=== PATIENT | male | born 1970 | race Hispanic/Latino ===

== ENCOUNTER 2017-10-10 12:15 | Inpatient (IN) | payer SELFPAY ==
[2017-10-10 12:48] LABS: #Basophils 0.1 thou/uL (0.0-0.2); #Lymphocytes 1.1 thou/uL (1.20-3.40); #Monocytes 0.9 thou/uL (0.11-0.59); #Neutrophils 10.4 thou/uL (1.40-6.50); %Basophils 0.4 % (0.0-1.0); %Eosinophils 0.2 % (0.0-10.0); %Lymphocytes 8.8 % (21.0-51.0); %Monocytes 7.3 % (0.0-10.0); Hematocrit 40.7 % (42.0-52.0); Red Blood Cell (RBC) Count 4.39 mill/uL (4.70-6.10); White Blood Cell (WBC) Count 12.4 thou/uL (4.8-10.8)
[2017-10-10 13:05] LABS: ALT (SGPT) 23 U/L (8-55); AST (SGOT) 17 U/L (5-34); Alkaline Phosphatase 252 U/L (40-150); Anion Gap 13 mmol/L (10-20); BUN (Urea Nitrogen) 19 mg/dL (8.9-20.6); Bilirubin, Total 0.8 mg/dL (0.2-1.2); Calc. Creatinine Clearance 0 mL/min (70-130); Calcium 9.4 mg/dL (7.8-10.44); Carbon Dioxide 25 mmol/L (22-29); Chloride 100 mmol/L (98-107); Estimated GFR-MDRD 68; Globulin 4.1 g/dL (2.4-3.5); Protein, Total 7.4 g/dL (6.0-8.3)
--- NOTE | 2017-10-10 13:05 | RAD ---
LEFT FOOT 3 VIEWS: History Foot injury with swelling. FINDINGS: There is bony destructive change involving the distal phalanx of the great toe. There is air within the soft tissues. There is what is probably a pathologic fracture involving the distal phalanx. The is seen in the soft tissues to the level of the 1st metatarsal. Vascular calcifications are noted. IMPRESSION: Findings are consistent with osteomyelitis of the distal phalanx of the great toe with air seen withi n the soft tissues to the level of the 1st metatarsal. Findings were discussed with Dr. Craig. CODE CR POS: [facility]
[2017-10-10] MEDS ORDERED: Insulin Regular 300 UNITS/3 ML VIAL ONE (13:31)
[2017-10-10 14:30] LABS: Hemoglobin A1c 13.1 % (4.0-6.0)
[2017-10-10] MEDS ORDERED: Benzonatate 100 MG CAP PO PRN (14:42)
[2017-10-10] MEDS ORDERED: Calcium Carbonate 500 MG ChewTAB PO PRN (14:42)
[2017-10-10] MEDS ORDERED: cloNIDine 0.1 MG TAB PO PRN (14:42)
[2017-10-10] MEDS ORDERED: Loratadine 10 MG TAB PO PRN (14:42)
[2017-10-10] MEDS ORDERED: Mag-Al 1200 mg/1200 mg/30 ML UDCUP PO PRN (14:42)
[2017-10-10] MEDS ORDERED: Lorazepam 1 MG TAB PO PRN (14:42)
[2017-10-10] MEDS ORDERED: hydrALAZINE 20 MG/ML VIAL SLOW IVP PRN (14:42)
[2017-10-10] MEDS ORDERED: Bisacodyl 5 MG TAB PO PRN (14:42)
[2017-10-10] MEDS ORDERED: HYDROcodone/Acetaminophen 5/325 mg Tablet PO PRN (14:42)
[2017-10-10] MEDS ORDERED: Ondansetron HCl/PF 4 MG/2 ML Vial IVP PRN (14:42)
[2017-10-10] MEDS ORDERED: Senokot 8.6 MG TAB PO PRN (14:42)
[2017-10-10] MEDS ORDERED: Diabetic Tussin 200 MG/10 ML UDCUP PO PRN (14:42)
[2017-10-10] MEDS ORDERED: Dextrose 50% Abboject 50 ML SYRINGE SLOW IVP PRN (14:42)
[2017-10-10] MEDS ORDERED: traMADol HCl 50 MG TAB PO PRN (14:42)
[2017-10-10] MEDS ORDERED: Nitroglycerin 0.4 MG TAB (25 Tab Bottle) SL PRN (14:42)
[2017-10-10] MEDS ORDERED: Acetaminophen 325 MG TAB PO PRN (14:42)
[2017-10-10] MEDS ORDERED: Dextrose 5% in Water 1,000 ML IV PRN (14:42)
[2017-10-10] MEDS: Sodium Chloride 0.9% 1,000 ML IV SCH (15:41)
--- NOTE | 2017-10-10 15:52 | HP ---
DATE OF ADMISSION: 10/10/2017 PRIMARY CARE PHYSICIAN: None. CHIEF COMPLAINT: Swelling, discharge pain and redness of the left toe. HISTORY OF PRESENTING ILLNESS: Mr. Nava is a very pleasant 47-year-old male without any medical care in the last multiple years, presented to the ER with the above-mentioned complaints. Hi story is mainly obtained by the patient himself and case has been discussed with the admitting ER glenys montes. Electronic medical records have been reviewed. Kiswahili interpretation is used as the patient speaks Kiswahili only. According to Mr. 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 He has been having some pain since then. He tried some home remedies as per the suggest ion of his friends including putting arnica cream on the foot along with some other remedies. His sy mptoms got worse and he started to have more swelling, pain, and discharge, which is bloody as well a s with pus. His redness and his swelling and pain got worse and he came to the ER. He denies having any fevers or chills. He denies any other symptoms. He denies any sick contacts. In the emergency room, he was found to be hemodynamically stable with blood pressure of 133/84 and pu lse of 98. His examination revealed significant swelling and purulent drainage from the left great t oe along with significant erythema extending up his foot. His foot was smelling really bad. He unde rwent an x-ray of the foot, which was consistent with osteomyelitis of the distal phalanx of the grea t toe with air in the soft tissue. He was given antibiotics in the emergency room in the form of IV vancomycin. His basic blood work showed a hemoglobin of 518. When asked, the patient does not have a known history of diabetes, but he has not received any medical care in many years, either. He also received Humulin R 6 units in the emergency room for this. He is now being admitted for further yoko luation and care. PAST MEDICAL HISTORY: None, reviewed with the patient. He has no known diagnosis of diabetes. PAST SURGICAL HISTORY: None, reviewed with the patient. SOCIAL HISTORY: He lives in [place], [place]. No history of drug, tobacco or alcohol abuse. ALLERGIES: No known medication allergies. CURRENT MEDICATIONS: He does not take any medications reviewed with the patient. FAMILY HISTORY: Significant for diabetes in his father, which was diagnosed in his 60s. REVIEW OF SYSTEMS: The following complete review of systems was negative, unless otherwise mentioned in the HPI or below: CONSTITUTIONAL: Weight loss or gain, ability to conduct usual activities. SKIN: Rash, itching. EYES: Double vision, pain. ENT/MOUTH: Nose bleeding, neck stiffness, pain, tenderness. CARDIOVASCULAR: Palpitations, dyspnea on exertion, orthopnea. RESPIRATORY: Shortness of breath, wheezing, cough, hemoptysis, fever or night sweats. GASTROINTESTINAL: Poor appetite, abdominal pain, heartburn, nausea, vomiting, constipation, or diarr hea. GENITOURINARY: Urgency, frequency, dysuria, nocturia. MUSCULOSKELETAL: He complains of pain, swelling, erythema and discharge from his left great toe, whi ch is worsening. NEUROLOGIC/PSYCHIATRIC: Anxiety, depression. ALLERGY/IMMUNOLOGIC: Skin rash, bleeding tendency. It is negative except for those mentioned in the history and physical. PHYSICAL EXAMINATION: VITAL SIGNS: His most recent vital signs include temperature 144/70, pulse of 83, respirations 98 an d saturating 94% on room air. GENERAL: No acute distress, awake, alert, oriented x3. HEENT: Mucous membrane is moist and pink. No oropharyngeal exudate or erythema. Head is normocepha lic, atraumatic. Pupils equal, reactive to light and accommodation. Extraocular movements intact. NECK: Supple without any lymphadenopathy, JVD or bruit. CHEST: Clear to auscultation without any wheezing, rales or rhonchi. Rate and rhythm is regular wit hout any murmur, rubs or gallops. ABDOMEN: Soft, nontender, nondistended with positive bowel sounds. EXTREMITIES: Free of any cyanosis, clubbing or edema. As described above, his great toe is swollen with significant amount of serosanguineous discharge oozing. The erythema extended from his toe all the way up his foot. Pedal pulses are felt bilaterally, +2. He had a 1 cm wound on the medial aspec t of the left great toe with black surrounding eschar. NEUROLOGIC: Nonfocal. SKIN: Free of any rashes or bruises, feels warm and dry to touch. PSYCHIATRIC: Normal affect. IMPRESSION AND PLAN: Left great toe osteomyelitis. This is likely in the setting of undiagnosed aakash betes mellitus with very poor control of his blood sugars. The patient will be continued on IV antib iotics and we will also order blood culture. He had a wound culture done in the Emergency Room, but it is unclear how informative it would be given the open wound. He will be covered for Pseudomonas a s well as MRSA with IV vancomycin and levofloxacin. We will consult Wound Care. We will also consul t General Surgery for possible need for amputation given extensive infection. The patient has been u pdated about all of this using the claim representative phone. Continue symptomatic and supportive care. 2. New diagnosis of diabetes. The patient will be started on insulin sliding scale and we will chec k his hemoglobin A1c. He will need oral hypoglycemic prior to discharge. We will put him on carbon controlled diet and consult dietitian for diabetic education. Dietary discretion is also advised. T he patient has talked about the importance of blood sugar management and this will be reasserted prio r to discharge. 3. Hypertension. The patient's blood pressure is slightly on the higher side while in here. We alison l monitor it and check a lipid panel for health maintenance purposes. Treat as needed. 4. Deep venous thrombosis and gastrointestinal prophylaxis. 5. Check urinalysis to rule out hematuria, ketonuria, glucosuria and proteinuria. His renal functio n at this time is adequate with estimated GFR of 68. 6. Code status: FULL CODE. DISPOSITION: Mr. Nava is being admitted to medical floor for osteomyelitis of left great toe. Fu rther management will depend upon his clinical course. Estimated length of stay at this time is at east 2-3 midnights.
[2017-10-10] MEDS: HumaLOG 300 UNITS/3 ML VIAL SC PRN ×2 (16:32→20:58)
[2017-10-10 16:38] VITALS: BMI 24.5
[2017-10-10] MEDS ORDERED: VANCOMYCIN IVPB PRN (17:12)
[2017-10-10] MEDS ORDERED: FLU VACC QS2017-18 36 mo. & older 0.5 ML SYRINGE IM ONE (18:00)
[2017-10-11] MEDS: Vancomycin HCl 1 GM in Premix Bag 1 BAG IVPB SCH ×2 (02:08→13:03)
[2017-10-11 02:24] LABS: Bilirubin Negative (Negative); Blood, Urine Negative (Negative); Glucose, Urine (Dipstick) >=1000 mg/dL (Negative); Ketone, Urine 40 mg/dL (Negative); Nitrite Negative (Negative); Protein, Urine (Dipstick) 30 mg/dL (Neg-Trace)
[2017-10-11 02:27] LABS: Bacteria/HPF None Seen HPF (None Seen); Hyaline Casts/LPF 0-3 HYALINE CAST LPF (0-3 Hyaline); RBC/HPF 0-3 HPF (0-3); Squamous Epithelial 0-3 HPF (0-3)
[2017-10-11 04:42] LABS: #Basophils 0.1 thou/uL (0.0-0.2); #Lymphocytes 1.6 thou/uL (1.20-3.40); #Monocytes 1.2 thou/uL (0.11-0.59); %Basophils 0.5 % (0.0-1.0); %Eosinophils 0.3 % (0.0-10.0); %Lymphocytes 13.7 % (21.0-51.0); %Monocytes 10.1 % (0.0-10.0); Mean Platelet Volume 7.8 fL (7.4-10.4); Red Blood Cell (RBC) Count 3.78 mill/uL (4.70-6.10); White Blood Cell (WBC) Count 11.9 thou/uL (4.8-10.8)
[2017-10-11 04:58] LABS: Chloride 103 mmol/L (98-107)
[2017-10-11 04:59] LABS: Calcium 8.5 mg/dL (7.8-10.44)
[2017-10-11 05:00] LABS: Carbon Dioxide 26 mmol/L (22-29)
[2017-10-11 05:02] LABS: Calc. Creatinine Clearance 99 mL/min (70-130); Estimated GFR-MDRD Greater than 90
[2017-10-11 05:03] LABS: BUN (Urea Nitrogen) 14 mg/dL (8.9-20.6)
[2017-10-11] MEDS: HumaLOG 300 UNITS/3 ML VIAL SC PRN ×4 (06:01→20:42)
[2017-10-11] MEDS: Enoxaparin Sodium 40 MG/0.4 ML SYRINGE SC SCH (08:04)
[2017-10-11 09:28] LABS: Anion Gap 9 mmol/L (10-20)
[2017-10-11] MEDS: Sodium Chloride 0.9% 1,000 ML IV SCH (11:44)
--- NOTE | 2017-10-11 15:35 | PDOC.PN ---
- Subjective Encounter Start Date: 10/11/17 Encounter Start Time: 15:33 Subjective: pain in the infected toe ,otherwise no new complaints - Objective MAR Reviewed: Yes Vital Signs & Weight: Vital Signs (12 hours) Temp Pulse Resp BP Pulse Ox 10/11/17 08:08 98.9 F 94 18 107/65 92 L 10/11/17 07:34 99.6 F 94 16 10/11/17 04:00 99.6 F 94 16 119/80 92 L I&O: 10/10/17 10/11/17 10/12/17 06:59 06:59 06:59 Intake Total 1520 Balance 1520 Result Diagrams: 10/11/17 03:57 10/11/17 03:57 Additional Labs: Accuchecks 10/11/17 10/10/17 10/10/17 10:44 20:26 15:56 POC Glucose 262 H 247 H 270 H Microbiology 10/10/17 15:32 Venous blood - Right Hand Blood Culture - Preliminary Specimen has been received and culture in progress. No Growth to date. 10/10/17 13:12 Toe - Left Bacterial Culture - Preliminary 10/10/17 12:36 Venous blood - Left Arm Blood Culture - Preliminary Specimen has been received and culture in progress. No Growth to date. Phys Exam - Physical Examination Constitutional: NAD HEENT: PERRLA, moist MMs, sclera anicteric, oral pharynx no lesions Neck: no nodes, no JVD, supple, full ROM Respiratory: no wheezing, no rales, no rhonchi, clear to auscultation bilateral Cardiovascular: RRR, no significant murmur, no rub, gallop Gastrointestinal: soft, non-tender, no distention, positive bowel sounds Musculoskeletal: no edema, pulses present Neurological: non-focal, normal sensation, moves all 4 limbs mild oozing on the dressing on foot Psychiatric: normal affect, A&O x 3 Skin: no rash Dx/Plan (1) Toe osteomyelitis, left Code(s): M86.9 - OSTEOMYELITIS, UNSPECIFIED Status: Acute (2) Newly diagnosed diabetes Code(s): E11.9 - TYPE 2 DIABETES MELLITUS WITHOUT COMPLICATIONS Status: Acute (3) SIRS (systemic inflammatory response syndrome) Code(s): R65.10 - SIRS OF NON-INFECTIOUS ORIGIN W/O ACUTE ORGAN DYSFUNCTION Status: Acute (4) Hyponatremia Code(s): E87.1 - HYPO-OSMOLALITY AND HYPONATREMIA Status: Acute - Plan DVT proph w/SCDs cont IV ABx. follow Cx results. wound care. -: GS to see tomorrow.may need amputation. -: blood sugar improved.cont ISS.add metformin. -: monitor. * . Review of Systems - Review of Systems Constitutional: negative: Fever, Chills, Sweats, Weakness, Malaise, Other Respiratory: negative: Cough, Dry, Shortness of Breath, Hemoptysis, SOB with Excertion, Pleuritic Pain, Sputum, Wheezing Cardiovascular: negative: Chest Pain, Palpitations, Orthopnea, Paroxysmal Noc. Dyspnea, Edema, Light Headedness, Other Gastrointestinal: negative: Nausea, Vomiting, Abdominal Pain, Diarrhea, Constipation, Melena, Hematochezia, Other Genitourinary: negative: Dysuria, Frequency, Incontinence, Hematuria, Retention , Other Musculoskeletal: negative: Neck Pain, Shoulder Pain, Arm Pain, Back Pain, Hand Pain, Leg Pain, Foot Pain, Other Neurological: negative: Weakness, Numbness, Incoordination, Change in Speech, Confusion, Seizures, Other - Medications/Allergies Allergies/Adverse Reactions: Allergies Allergy/AdvReac Type Severity Reaction Status Date / Time No Known Allergies Allergy Verified 10/10/17 16:58 Medications: Current Medications Acetaminophen (Tylenol) 650 mg PO Q4H PRN PRN Reason: Headache/Fever or Pain Last Admin: 10/11/17 06:00 Dose: 650 mg Hydrocodone Bitart/Acetaminophen ([place] 5/325) 1 tab PO Q4H PRN PRN Reason: Moderate Pain (4-6) Last Admin: 10/11/17 11:38 Dose: 1 tab Al Hydroxide/Mg Hydroxide (Maalox) 30 ml PO Q6H PRN PRN Reason: Heartburn or Indigestion Benzonatate (Tessalon) 100 mg PO Q4H PRN PRN Reason: Cough Bisacodyl (Dulcolax) 10 mg PO DAILYPRN PRN PRN Reason: Constipation Calcium Carbonate (Tums) 1,000 mg PO Q4H PRN PRN Reason: Heartburn or Indigestion Clonidine (Catapres) 0.1 mg PO Q4H PRN PRN Reason: Systolic BP > 170 Dextrose/Water (Dextrose 50%) 25 gm SLOW IVP PRN PRN PRN Reason: Hypoglycemia Enoxaparin Sodium (Lovenox) 40 mg SC 0900 [facility] Last Admin: 10/11/17 08:04 Dose: Not Given Famotidine (Pepcid) 20 mg PO 2100 GO Glucagon (Glucagon) 1 mg IM PRN PRN PRN Reason: Hypoglycemia Guaifenesin (Robitussin Sf) 200 mg PO Q4H PRN PRN Reason: Cough Hydralazine HCl (Apresoline) 10 mg SLOW IVP Q4H PRN PRN Reason: Systolic BP > 180 Dextrose/Water (D5w) 1,000 mls @ 0 mls/hr IV .Q0M PRN; As Directed PRN Reason: Hypoglycemia Sodium Chloride (Normal Saline 0.9%) 1,000 mls @ 50 mls/hr IV .Q20H [facility] Last Admin: 10/11/17 11:44 Dose: 1,000 mls Levofloxacin 750 mg/ Device 150 mls @ 100 mls/hr IVPB 1500 [facility] Last Admin: 10/11/17 14:57 Dose: 150 mls Vancomycin HCl 1 gm/ Device 200 mls @ 200 mls/hr IVPB 0200,1400 [facility] Last Admin: 10/11/17 13:03 Dose: 200 mls Insulin Human Lispro (Humalog) 0 units SC .MODERATE SLIDING SC PRN PRN Reason: Moderate Correctional Scale Last Admin: 10/11/17 11:38 Dose: 6 unit Insulin Human Lispro (Humalog) 0 units SC .BEDTIME SLIDING SC PRN PRN Reason: Bedtime Correctional Scale Last Admin: 10/10/17 20:58 Dose: 2 unit Loratadine (Claritin) 10 mg PO DAILYPRN PRN PRN Reason: Sinus Symptoms Lorazepam (Ativan) 1 mg PO Q4H PRN PRN Reason: Anxiety/Agitation Metformin HCl (Glucophage) 500 mg PO BID-[facility] Miscellaneous Medication (Pharmacy To Dose) 1 each IVPB PRN PRN PRN Reason: Pharmacy to dose Nitroglycerin (Nitrostat) 0.4 mg SL Q5MIN PRN PRN Reason: Chest Pain Ondansetron HCl (Zofran) 4 mg IVP Q6H PRN PRN Reason: Nausea/Vomiting Senna (Senokot) 2 tab PO HSPRN PRN PRN Reason: Constipation Sodium Chloride (Flush - Normal Saline) 10 ml IVF Q12HR OG Last Admin: 10/11/17 08:04 Dose: Not Given Sodium Chloride (Flush - Normal Saline) 10 ml IVF PRN PRN PRN Reason: Saline Flush Tramadol HCl (Ultram) 50 mg PO Q4H PRN PRN Reason: Moderate Pain (4-6)
[2017-10-11] MEDS: metFORMIN 500 MG TAB PO SCH (16:01)
[2017-10-11] MEDS: Famotidine 20 MG TAB PO SCH (20:42)
[2017-10-12 01:13] LABS: Vancomycin, Trough 6.4 ug/mL
[2017-10-12] MEDS: Vancomycin HCl 1 GM in Premix Bag 1 BAG IVPB SCH ×3 (01:41→17:07)
[2017-10-12] MEDS: Sodium Chloride 0.9% 1,000 ML IV SCH (05:12)
[2017-10-12] MEDS: HumaLOG 300 UNITS/3 ML VIAL SC PRN ×3 (05:44→20:29)
[2017-10-12] MEDS: Enoxaparin Sodium 40 MG/0.4 ML SYRINGE SC SCH (07:05)
[2017-10-12] MEDS: metFORMIN 500 MG TAB PO SCH ×2 (07:05→16:09)
--- NOTE | 2017-10-12 09:40 | CON ---
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 He has been newly diagnosed diabe tic. Hemoglobin A1c is 8, Accu-Cheks are between 200 and 300. The patient as stated above is single , works plumbing, has noticed problems with the left great toe since admission. He had osteomyelitis and gas in the soft tissues on x-rays. He has been n.p.o. this morning and admitted to the hospital ist service. Plan is for amputation of left great toe and metatarsal and charitable VAC and discharg ed home later this week on oral antibiotics. ALLERGIES: None. TOBACCO: None. ALCOHOL: None. MEDICATIONS: None prior to this hospitalization. PAST SURGICAL AND MEDICAL HISTORY: None known prior to this hospitalization, although diagnosed with diabetes mellitus this hospitalization. REVIEW OF SYSTEMS: Ten point noncontributory. PHYSICAL EXAMINATION: VITAL SIGNS: Height 5 foot 4, 143 pounds, 24 BMI, 98.7, 89, 18, 104/64. HEENT: Unremarkable. LUNGS: Clear to auscultation. CARDIAC: Regular rate and rhythm without murmur or gallop. ABDOMEN: Soft, nontender, no masses. EXTREMITIES: Palpable femoral, popliteal, posterior tibial and dorsalis pedis pulses both feet Gas g angrene, left foot great toe, foul smelling toe, markedly edematous ulceration and purulent discharge beneath the skin. ASSESSMENT AND PLAN: Gas gangrene, left great toe. Will plan amputation of left great toe and metat arsal and wound VAC application postoperatively. Continue intravenous antibiotics for now. Plan dis charge home on oral antibiotics without outpatient wound care, charitable VAC, [facility] Outpatient Wound C are appointment.
[2017-10-12] MEDS ORDERED: Midazolam HCl 2 mg/2 ml Vial ONE (11:14)
[2017-10-12] MEDS ORDERED: Fentanyl 100 MCG/2 ML VIAL ONE ×2 (11:14→12:20)
[2017-10-12] MEDS ORDERED: Fentanyl 100 MCG/2 ML VIAL SLOW IVP PRN (12:29)
[2017-10-12] MEDS ORDERED: Acetaminophen 500 MG TAB PO PRN (12:32)
--- NOTE | 2017-10-12 12:59 | OP ---
DATE OF PROCEDURE: 10/12/2017 PREOPERATIVE DIAGNOSIS: Diabetic gas gangrene infection, left great toe and metatarsal. POSTOPERATIVE DIAGNOSIS: Diabetic gas gangrene infection, left great toe and metatarsal involving th e second toe. PROCEDURES: Amputation of left great toe, second toe and metatarsals. Wound left on healing by seco ndary intention. Wound care team arrived and placed a wound VAC. Good blood supply, no evidence of PAD. Suture ligation of vessels required 4-0 Vicryl. ANESTHESIA: TIVA anesthesia (neuropathy). PROCEDURE IN DETAIL: Patient taken to the operating room where under intravenous sedation, left lowe r extremity was prepared with ChloraPrep and draped in routine fashion. Incision was made for racque t incision in left great toe amputating it noting a gangrenous infectious process involving the secon d toe requiring amputation of second toe dividing the first and second metatarsals with a bone cutter , resected proximally with a rongeur divided and connective tissue sharply resecting, excising, resec ting connective tissue. Hemostasis gained with the cautery and 4-0 Vicryl and figure-of-8. There is pulsatile bleeding in digital vessels required suture ligation (no evidence of PAD). Wound irrigate d, metatarsal resected proximally with rongeurs. Good hemostasis obtained. Wound Care team arrived and placed a wound VAC. The patient tolerated the procedure well.
--- NOTE | 2017-10-12 16:12 | PDOC.PN ---
- Subjective Encounter Start Date: 10/12/17 Encounter Start Time: 16:12 Subjective: feels OK. pain controlled. -: s/p Left toe amputation,1st and 2nd - Objective MAR Reviewed: Yes Vital Signs & Weight: Vital Signs (12 hours) Temp Pulse Resp BP Pulse Ox 10/12/17 07:59 98.7 F 89 18 104/64 99 10/12/17 07:06 98.7 F 92 18 Weight Admit Weight 1432 lb Weight 143 lb 3.2 oz I&O: 10/11/17 10/12/17 10/13/17 06:59 06:59 06:59 Intake Total 1520 Balance 1520 Result Diagrams: 10/11/17 03:57 10/11/17 03:57 Additional Labs: Accuchecks 10/12/17 10/12/17 10/11/17 11:00 04:14 19:14 POC Glucose 204 H 266 H 279 H 10/11/17 04:51 POC Glucose 261 H Microbiology 10/12/17 11:40 Toe - Left Bacterial Culture - Preliminary 10/10/17 15:32 Venous blood - Right Hand Blood Culture - Preliminary NO GROWTH AT 48 HOURS 10/10/17 13:12 Toe - Left Bacterial Culture - Preliminary Streptococcus agalactiae Gp. B Alpha-Hemolytic Streptococcus 10/10/17 12:36 Venous blood - Left Arm Blood Culture - Preliminary NO GROWTH AT 48 HOURS Phys Exam - Physical Examination Constitutional: NAD HEENT: PERRLA, moist MMs, sclera anicteric, oral pharynx no lesions, 2+ tonsils Neck: no nodes, no JVD, supple, full ROM Respiratory: no wheezing, no rales, no rhonchi, clear to auscultation bilateral Cardiovascular: RRR, no significant murmur, no rub, gallop Gastrointestinal: soft, non-tender, no distention, positive bowel sounds Musculoskeletal: no edema, pulses present left foor in wound boots w wound vac. Neurological: non-focal, normal sensation, moves all 4 limbs Psychiatric: normal affect, A&O x 3 Skin: no rash Dx/Plan (1) Toe osteomyelitis, left Code(s): M86.9 - OSTEOMYELITIS, UNSPECIFIED Status: Acute Comment: s/p amputation (2) Newly diagnosed diabetes Code(s): E11.9 - TYPE 2 DIABETES MELLITUS WITHOUT COMPLICATIONS Status: Acute (3) SIRS (systemic inflammatory response syndrome) Code(s): R65.10 - SIRS OF NON-INFECTIOUS ORIGIN W/O ACUTE ORGAN DYSFUNCTION Status: Acute (4) Hyponatremia Code(s): E87.1 - HYPO-OSMOLALITY AND HYPONATREMIA Status: Acute - Plan continue antibiotics, out of bed/ambulate, DVT proph w/SCDs cont ABx for now. Cx negative.herson will Dc ABx prior to DC -: Follow results of bone Cx. -: Blood sugar running high despite Insulin & metformin. -: may need both for home. -: DC when wound vac/wound care f/u arranged * . Review of Systems - Review of Systems Constitutional: negative: Fever, Chills, Sweats, Weakness, Malaise, Other ENT: negative: Ear Pain, Ear Discharge, Nose Pain, Nose Discharge, Nose Congestion, Mouth Pain, Mouth Swelling, Throat Pain, Throat Swelling, Other Respiratory: negative: Cough, Dry, Shortness of Breath, Hemoptysis, SOB with Excertion, Pleuritic Pain, Sputum, Wheezing Cardiovascular: negative: Chest Pain, Palpitations, Orthopnea, Paroxysmal Noc. Dyspnea, Edema, Light Headedness, Other Gastrointestinal: negative: Nausea, Vomiting, Abdominal Pain, Diarrhea, Constipation, Melena, Hematochezia, Other Genitourinary: negative: Dysuria, Frequency, Incontinence, Hematuria, Retention , Other Musculoskeletal: negative: Neck Pain, Shoulder Pain, Arm Pain, Back Pain, Hand Pain, Leg Pain, Foot Pain, Other Neurological: negative: Weakness, Numbness, Incoordination, Change in Speech, Confusion, Seizures, Other - Medications/Allergies Allergies/Adverse Reactions: Allergies Allergy/AdvReac Type Severity Reaction Status Date / Time No Known Allergies Allergy Verified 10/10/17 16:58 Medications: Current Medications Acetaminophen (Tylenol) 650 mg PO Q4H PRN PRN Reason: Headache/Fever or Pain Last Admin: 10/11/17 06:00 Dose: 650 mg Acetaminophen (Tylenol) 1,000 mg PO Q6H PRN PRN Reason: Moderate to Severe Pain (6-10) Al Hydroxide/Mg Hydroxide (Maalox) 30 ml PO Q6H PRN PRN Reason: Heartburn or Indigestion Benzonatate (Tessalon) 100 mg PO Q4H PRN PRN Reason: Cough Bisacodyl (Dulcolax) 10 mg PO DAILYPRN PRN PRN Reason: Constipation Calcium Carbonate (Tums) 1,000 mg PO Q4H PRN PRN Reason: Heartburn or Indigestion Clonidine (Catapres) 0.1 mg PO Q4H PRN PRN Reason: Systolic BP > 170 Dextrose/Water (Dextrose 50%) 25 gm SLOW IVP PRN PRN PRN Reason: Hypoglycemia Enoxaparin Sodium (Lovenox) 40 mg SC 0900 [facility] Last Admin: 10/12/17 07:05 Dose: Not Given Famotidine (Pepcid) 20 mg PO 2100 [facility] Last Admin: 10/11/17 20:42 Dose: 20 mg Fentanyl (Sublimaze) 50 mcg SLOW IVP Q10MIN PRN PRN Reason: MODERATE PAIN Stop: 10/12/17 18:00 Glucagon (Glucagon) 1 mg IM PRN PRN PRN Reason: Hypoglycemia Guaifenesin (Robitussin Sf) 200 mg PO Q4H PRN PRN Reason: Cough Hydralazine HCl (Apresoline) 10 mg SLOW IVP Q4H PRN PRN Reason: Systolic BP > 180 Dextrose/Water (D5w) 1,000 mls @ 0 mls/hr IV .Q0M PRN; As Directed PRN Reason: Hypoglycemia Vancomycin HCl 1 gm/ Device 200 mls @ 200 mls/hr IVPB 0200,1000,1800 [facility] Last Admin: 10/12/17 09:02 Dose: 200 mls Piperacillin Sod/Tazobactam Sod 3.375 gm/ Miscellaneous Medication 1 each/ Sodium Chloride 100 mls @ 200 mls/hr IVPB Q6HR [facility] Insulin Human Lispro (Humalog) 0 units SC .MODERATE SLIDING SC PRN PRN Reason: Moderate Correctional Scale Last Admin: 10/12/17 05:44 Dose: 6 unit Insulin Human Lispro (Humalog) 0 units SC .BEDTIME SLIDING SC PRN PRN Reason: Bedtime Correctional Scale Last Admin: 10/11/17 20:42 Dose: 3 unit Loratadine (Claritin) 10 mg PO DAILYPRN PRN PRN Reason: Sinus Symptoms Lorazepam (Ativan) 1 mg PO Q4H PRN PRN Reason: Anxiety/Agitation Metformin HCl (Glucophage) 500 mg PO BID-[facility] Last Admin: 10/12/17 16:09 Dose: 500 mg Miscellaneous Medication (Pharmacy To Dose) 1 each IVPB PRN PRN PRN Reason: Pharmacy to dose Nitroglycerin (Nitrostat) 0.4 mg SL Q5MIN PRN PRN Reason: Chest Pain Ondansetron HCl (Zofran) 4 mg IVP Q6H PRN PRN Reason: Nausea/Vomiting Polyethylene Glycol (Miralax) 17 gm PO DAILY [facility] Senna (Senokot) 2 tab PO HSPRN PRN PRN Reason: Constipation Sodium Chloride (Flush - Normal Saline) 10 ml IVF Q12HR [facility] Last Admin: 10/12/17 07:05 Dose: Not Given Sodium Chloride (Flush - Normal Saline) 10 ml IVF PRN PRN PRN Reason: Saline Flush Tramadol HCl (Ultram) 50 mg PO Q4H PRN PRN Reason: Moderate Pain (4-6) Last Admin: 10/12/17 13:23 Dose: 50 mg Tramadol HCl (Ultram) 100 mg PO Q4H PRN PRN Reason: Pain
[2017-10-12] MEDS ORDERED: Lidocaine 1% PF 5 ML VIAL ONE (17:09)
[2017-10-12] MEDS ORDERED: Propofol 200 MG/20 ML VIAL ONE (17:09)
[2017-10-12] MEDS: Piperacillin/Tazobactam 3.375 GM, Admixture Fee 1 EACH in Sodium Chloride 0.9% 100 ML IVPB SCH ×2 (18:11→23:42)
[2017-10-12] MEDS: Famotidine 20 MG TAB PO SCH (20:29)
[2017-10-13 01:35] LABS: Vancomycin, Trough 11.3 ug/mL
[2017-10-13] MEDS: Vancomycin HCl 1 GM in Premix Bag 1 BAG IVPB SCH ×3 (02:26→16:58)
[2017-10-13] MEDS: HumaLOG 300 UNITS/3 ML VIAL SC PRN ×3 (05:36→16:58)
[2017-10-13] MEDS: Piperacillin/Tazobactam 3.375 GM, Admixture Fee 1 EACH in Sodium Chloride 0.9% 100 ML IVPB SCH ×3 (05:36→18:40)
[2017-10-13 06:16] LABS: Hematocrit 37.3 % (42.0-52.0)
[2017-10-13 06:32] LABS: Anion Gap 11 mmol/L (10-20); BUN (Urea Nitrogen) 15 mg/dL (8.9-20.6); Calc. Creatinine Clearance 103 mL/min (70-130); Calcium 8.5 mg/dL (7.8-10.44); Carbon Dioxide 24 mmol/L (22-29); Chloride 98 mmol/L (98-107); Estimated GFR-MDRD Greater than 90
[2017-10-13] MEDS: Polyethylene Glycol 3350 17 GM Packet PO SCH (08:11)
[2017-10-13] MEDS: metFORMIN 500 MG TAB PO SCH ×2 (08:11→16:58)
[2017-10-13] MEDS: Enoxaparin Sodium 40 MG/0.4 ML SYRINGE SC SCH (08:12)
[2017-10-13] MEDS: Sodium Chloride 0.9% 1,000 ML IV SCH (09:23)
--- NOTE | 2017-10-13 14:21 | PDOC.PN ---
- Subjective Encounter Start Date: 10/13/17 Encounter Start Time: 14:20 Subjective: feels well. pain under control. -: no new complaints - Objective MAR Reviewed: Yes Vital Signs & Weight: Vital Signs (12 hours) Temp Pulse Resp BP Pulse Ox 10/13/17 08:09 97.7 F 90 16 104/68 93 L 10/13/17 08:00 97.7 F 90 16 93 L 10/13/17 04:00 98.8 F 84 16 116/77 92 L Weight Admit Weight 1432 lb Weight 143 lb 3.2 oz I&O: 10/12/17 10/13/17 10/14/17 06:59 06:59 06:59 Intake Total 760 Balance 760 Result Diagrams: 10/13/17 05:49 10/13/17 05:49 Additional Labs: Accuchecks 10/13/17 10/12/17 10/12/17 11:36 20:28 16:37 POC Glucose 257 H 242 H 320 H Microbiology 10/12/17 11:40 Toe - Left Bacterial Culture - Preliminary 10/12/17 11:40 Toe - Left Alpha-Hemolytic Streptococcus 10/10/17 15:32 Venous blood - Right Hand Blood Culture - Preliminary NO GROWTH AT 48 HOURS 10/10/17 13:12 Toe - Left Bacterial Culture - Preliminary Streptococcus agalactiae Gp. B Alpha-Hemolytic Streptococcus 10/10/17 12:36 Venous blood - Left Arm Blood Culture - Preliminary NO GROWTH AT 48 HOURS Laboratory Tests 03/21/16 10/10/17 10/11/17 16:10 12:37 03:57 Sodium 134 L 134 L 134 L 10/13/17 05:49 Sodium 129 L Phys Exam - Physical Examination Constitutional: NAD HEENT: PERRLA, moist MMs, sclera anicteric, oral pharynx no lesions Neck: no nodes, no JVD, supple, full ROM Respiratory: no wheezing, no rales, no rhonchi, clear to auscultation bilateral Cardiovascular: RRR, no significant murmur Gastrointestinal: soft, non-tender, no distention, positive bowel sounds Musculoskeletal: no edema, pulses present left toe amputation status w wound vac in place Neurological: non-focal, normal sensation, moves all 4 limbs Psychiatric: normal affect, A&O x 3 Skin: no rash Dx/Plan (1) Toe osteomyelitis, left Code(s): M86.9 - OSTEOMYELITIS, UNSPECIFIED Status: Acute Comment: s/p amputation.Wound vac in place (2) Hyponatremia Code(s): E87.1 - HYPO-OSMOLALITY AND HYPONATREMIA Status: Acute (3) Newly diagnosed diabetes Code(s): E11.9 - TYPE 2 DIABETES MELLITUS WITHOUT COMPLICATIONS Status: Acute (4) SIRS (systemic inflammatory response syndrome) Code(s): R65.10 - SIRS OF NON-INFECTIOUS ORIGIN W/O ACUTE ORGAN DYSFUNCTION Status: Resolved - Plan out of bed/ambulate, DVT proph w/SCDs low sodium today.herson dehydration.start NS & recheck. -: cont IV ABx for now. GS following.wound vac -: Follow Path reports. -: Op wound care and Woundvac needs to be set up for DC.unfunded -: cont metformin w ISS.will need scripts on DC for new dianosis of DM * . Review of Systems - Review of Systems Constitutional: negative: Fever, Chills, Sweats, Weakness, Malaise, Other Respiratory: negative: Cough, Dry, Shortness of Breath, Hemoptysis, SOB with Excertion, Pleuritic Pain, Sputum, Wheezing Cardiovascular: negative: Chest Pain, Palpitations, Orthopnea, Paroxysmal Noc. Dyspnea, Edema, Light Headedness, Other Gastrointestinal: negative: Nausea, Vomiting, Abdominal Pain, Diarrhea, Constipation, Melena, Hematochezia, Other Genitourinary: negative: Dysuria, Frequency, Incontinence, Hematuria, Retention , Other Musculoskeletal: negative: Neck Pain, Shoulder Pain, Arm Pain, Back Pain, Hand Pain, Leg Pain, Foot Pain, Other Neurological: negative: Weakness, Numbness, Incoordination, Change in Speech, Confusion, Seizures, Other - Medications/Allergies Allergies/Adverse Reactions: Allergies Allergy/AdvReac Type Severity Reaction Status Date / Time No Known Allergies Allergy Verified 10/10/17 16:58 Medications: Current Medications Acetaminophen (Tylenol) 650 mg PO Q4H PRN PRN Reason: Headache/Fever or Pain Last Admin: 10/11/17 06:00 Dose: 650 mg Acetaminophen (Tylenol) 1,000 mg PO Q6H PRN PRN Reason: Moderate to Severe Pain (6-10) Al Hydroxide/Mg Hydroxide (Maalox) 30 ml PO Q6H PRN PRN Reason: Heartburn or Indigestion Benzonatate (Tessalon) 100 mg PO Q4H PRN PRN Reason: Cough Bisacodyl (Dulcolax) 10 mg PO DAILYPRN PRN PRN Reason: Constipation Calcium Carbonate (Tums) 1,000 mg PO Q4H PRN PRN Reason: Heartburn or Indigestion Clonidine (Catapres) 0.1 mg PO Q4H PRN PRN Reason: Systolic BP > 170 Dextrose/Water (Dextrose 50%) 25 gm SLOW IVP PRN PRN PRN Reason: Hypoglycemia Enoxaparin Sodium (Lovenox) 40 mg SC 0900 [facility] Last Admin: 10/13/17 08:12 Dose: 40 mg Famotidine (Pepcid) 20 mg PO 2100 [facility] Last Admin: 10/12/17 20:29 Dose: 20 mg Glucagon (Glucagon) 1 mg IM PRN PRN PRN Reason: Hypoglycemia Guaifenesin (Robitussin Sf) 200 mg PO Q4H PRN PRN Reason: Cough Hydralazine HCl (Apresoline) 10 mg SLOW IVP Q4H PRN PRN Reason: Systolic BP > 180 Dextrose/Water (D5w) 1,000 mls @ 0 mls/hr IV .Q0M PRN; As Directed PRN Reason: Hypoglycemia Vancomycin HCl 1 gm/ Device 200 mls @ 200 mls/hr IVPB 0200,1000,1800 [facility] Last Admin: 10/13/17 09:23 Dose: 200 mls Piperacillin Sod/Tazobactam Sod 3.375 gm/ Miscellaneous Medication 1 each/ Sodium Chloride 100 mls @ 200 mls/hr IVPB Q6HR [facility] Last Admin: 10/13/17 11:34 Dose: 100 mls Sodium Chloride (Normal Saline 0.9%) 1,000 mls @ 75 mls/hr IV .[id number] [facility] Last Admin: 10/13/17 09:23 Dose: 1,000 mls Insulin Human Lispro (Humalog) 0 units SC .MODERATE SLIDING SC PRN PRN Reason: Moderate Correctional Scale Last Admin: 10/13/17 13:55 Dose: 6 unit Insulin Human Lispro (Humalog) 0 units SC .BEDTIME SLIDING SC PRN PRN Reason: Bedtime Correctional Scale Last Admin: 10/12/17 20:29 Dose: 2 unit Loratadine (Claritin) 10 mg PO DAILYPRN PRN PRN Reason: Sinus Symptoms Lorazepam (Ativan) 1 mg PO Q4H PRN PRN Reason: Anxiety/Agitation Metformin HCl (Glucophage) 500 mg PO BID-[facility] Last Admin: 10/13/17 08:11 Dose: 500 mg Miscellaneous Medication (Pharmacy To Dose) 1 each IVPB PRN PRN PRN Reason: Pharmacy to dose Nitroglycerin (Nitrostat) 0.4 mg SL Q5MIN PRN PRN Reason: Chest Pain Ondansetron HCl (Zofran) 4 mg IVP Q6H PRN PRN Reason: Nausea/Vomiting Polyethylene Glycol (Miralax) 17 gm PO DAILY [facility] Last Admin: 10/13/17 08:11 Dose: 17 gm Senna (Senokot) 2 tab PO HSPRN PRN PRN Reason: Constipation Sodium Chloride (Flush - Normal Saline) 10 ml IVF Q12HR [facility] Last Admin: 10/13/17 08:13 Dose: 10 ml Sodium Chloride (Flush - Normal Saline) 10 ml IVF PRN PRN PRN Reason: Saline Flush Tramadol HCl (Ultram) 50 mg PO Q4H PRN PRN Reason: Moderate Pain (4-6) Last Admin: 10/12/17 13:23 Dose: 50 mg Tramadol HCl (Ultram) 100 mg PO Q4H PRN PRN Reason: Pain
[2017-10-13] MEDS: Famotidine 20 MG TAB PO SCH (21:45)
[2017-10-14] MEDS: Piperacillin/Tazobactam 3.375 GM, Admixture Fee 1 EACH in Sodium Chloride 0.9% 100 ML IVPB SCH ×4 (00:28→18:45)
[2017-10-14 01:56] LABS: Vancomycin, Trough 15.2 ug/mL
[2017-10-14] MEDS: Vancomycin HCl 1 GM in Premix Bag 1 BAG IVPB SCH ×3 (02:05→17:39)
[2017-10-14] MEDS: Sodium Chloride 0.9% 1,000 ML IV SCH ×2 (02:10→10:54)
[2017-10-14] MEDS: HumaLOG 300 UNITS/3 ML VIAL SC PRN ×3 (06:10→21:25)
[2017-10-14] MEDS: metFORMIN 500 MG TAB PO SCH ×2 (09:12→17:39)
[2017-10-14] MEDS: traMADol HCl 50 MG TAB PO PRN ×2 (09:12→14:13)
[2017-10-14] MEDS: Polyethylene Glycol 3350 17 GM Packet PO SCH (09:14)
[2017-10-14] MEDS: Enoxaparin Sodium 40 MG/0.4 ML SYRINGE SC SCH (09:14)
--- NOTE | 2017-10-14 11:56 | PRG ---
DATE OF SERVICE: 10/14/2017 Mr. Nava is doing well today. He is afebrile. Cultures reveal Streptococcus identification pendi ng. He remains afebrile. 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 Today, the wound VAC is removed. The wound looks good, it is granulating , it is bleeding somewhat. The cellulitis has resolved. At this point, I would recommend discharge home in the next 24-48 hours on oral antibiotics with outpatient wound VAC arrangements for [facility]. I will see him in the office in 3-4 weeks.
--- NOTE | 2017-10-14 14:35 | PDOC.PN ---
- Subjective Encounter Start Date: 10/14/17 Encounter Start Time: 09:20 Pt seen for followup re: osteomyelitis. Denies chest pain, shortness of breath , fevers or chills. - Objective MAR Reviewed: Yes Vital Signs & Weight: Vital Signs (12 hours) Temp Pulse Resp BP Pulse Ox 10/14/17 08:00 98.3 F 84 16 100/64 93 L Weight Admit Weight 1432 lb Weight 143 lb 3.2 oz I&O: 10/13/17 10/14/17 10/15/17 06:59 06:59 06:59 Intake Total 760 1500 Output Total 800 Balance 760 700 Result Diagrams: 10/13/17 05:49 10/13/17 14:45 Additional Labs: Accuchecks 10/14/17 10/13/17 10/13/17 11:29 20:23 16:18 POC Glucose 314 H 227 H 209 H 10/13/17 04:18 POC Glucose 288 H Phys Exam - Physical Examination Constitutional: NAD HEENT: moist MMs, oral pharynx no lesions Neck: supple Respiratory: clear to auscultation bilateral Cardiovascular: RRR Gastrointestinal: soft Musculoskeletal: pulses present s/p L foot surgery Neurological: non-focal Psychiatric: normal affect Skin: no rash Dx/Plan (1) Toe osteomyelitis, left Code(s): M86.9 - OSTEOMYELITIS, UNSPECIFIED Status: Acute Comment: s/p amputation.Wound vac in place (2) Newly diagnosed diabetes Code(s): E11.9 - TYPE 2 DIABETES MELLITUS WITHOUT COMPLICATIONS Status: Acute (3) Hyponatremia Code(s): E87.1 - HYPO-OSMOLALITY AND HYPONATREMIA Status: Acute - Plan continue antibiotics, DVT proph w/lovenox * . Awaiting approval for wound vac. Likely home 24-48 hrs. Continue accuchecks, insulin. Start levemir. Follow labs. Review of Systems - Review of Systems Respiratory: negative: Cough, Dry, Shortness of Breath, Hemoptysis, SOB with Excertion, Pleuritic Pain, Sputum, Wheezing Cardiovascular: negative: Chest Pain, Palpitations, Orthopnea, Paroxysmal Noc. Dyspnea, Edema, Light Headedness - Medications/Allergies Allergies/Adverse Reactions: Allergies Allergy/AdvReac Type Severity Reaction Status Date / Time No Known Allergies Allergy Verified 10/10/17 16:58 Medications: Current Medications Acetaminophen (Tylenol) 650 mg PO Q4H PRN PRN Reason: Headache/Fever or Pain Last Admin: 10/11/17 06:00 Dose: 650 mg Acetaminophen (Tylenol) 1,000 mg PO Q6H PRN PRN Reason: Moderate to Severe Pain (6-10) Al Hydroxide/Mg Hydroxide (Maalox) 30 ml PO Q6H PRN PRN Reason: Heartburn or Indigestion Benzonatate (Tessalon) 100 mg PO Q4H PRN PRN Reason: Cough Bisacodyl (Dulcolax) 10 mg PO DAILYPRN PRN PRN Reason: Constipation Calcium Carbonate (Tums) 1,000 mg PO Q4H PRN PRN Reason: Heartburn or Indigestion Clonidine (Catapres) 0.1 mg PO Q4H PRN PRN Reason: Systolic BP > 170 Dextrose/Water (Dextrose 50%) 25 gm SLOW IVP PRN PRN PRN Reason: Hypoglycemia Enoxaparin Sodium (Lovenox) 40 mg SC 0900 [facility] Last Admin: 10/14/17 09:14 Dose: 40 mg Famotidine (Pepcid) 20 mg PO 2100 [facility] Last Admin: 10/13/17 21:45 Dose: 20 mg Glucagon (Glucagon) 1 mg IM PRN PRN PRN Reason: Hypoglycemia Guaifenesin (Robitussin Sf) 200 mg PO Q4H PRN PRN Reason: Cough Hydralazine HCl (Apresoline) 10 mg SLOW IVP Q4H PRN PRN Reason: Systolic BP > 180 Dextrose/Water (D5w) 1,000 mls @ 0 mls/hr IV .Q0M PRN; As Directed PRN Reason: Hypoglycemia Vancomycin HCl 1 gm/ Device 200 mls @ 200 mls/hr IVPB 0200,1000,1800 [facility] Last Admin: 10/14/17 09:15 Dose: 200 mls Piperacillin Sod/Tazobactam Sod 3.375 gm/ Miscellaneous Medication 1 each/ Sodium Chloride 100 mls @ 200 mls/hr IVPB Q6HR [facility] Last Admin: 10/14/17 12:31 Dose: 100 mls Sodium Chloride (Normal Saline 0.9%) 1,000 mls @ 75 mls/hr IV .[id number] [facility] Last Admin: 10/14/17 10:54 Dose: 1,000 mls Insulin Human Lispro (Humalog) 0 units SC .MODERATE SLIDING SC PRN PRN Reason: Moderate Correctional Scale Last Admin: 10/14/17 12:32 Dose: 8 unit Insulin Human Lispro (Humalog) 0 units SC .BEDTIME SLIDING SC PRN PRN Reason: Bedtime Correctional Scale Last Admin: 10/12/17 20:29 Dose: 2 unit Loratadine (Claritin) 10 mg PO DAILYPRN PRN PRN Reason: Sinus Symptoms Lorazepam (Ativan) 1 mg PO Q4H PRN PRN Reason: Anxiety/Agitation Metformin HCl (Glucophage) 500 mg PO BID-[facility] Last Admin: 10/14/17 09:12 Dose: 500 mg Miscellaneous Medication (Pharmacy To Dose) 1 each IVPB PRN PRN PRN Reason: Pharmacy to dose Nitroglycerin (Nitrostat) 0.4 mg SL Q5MIN PRN PRN Reason: Chest Pain Ondansetron HCl (Zofran) 4 mg IVP Q6H PRN PRN Reason: Nausea/Vomiting Polyethylene Glycol (Miralax) 17 gm PO DAILY [facility] Last Admin: 10/14/17 09:14 Dose: 17 gm Senna (Senokot) 2 tab PO HSPRN PRN PRN Reason: Constipation Sodium Chloride (Flush - Normal Saline) 10 ml IVF Q12HR [facility] Last Admin: 10/14/17 09:15 Dose: 10 ml Sodium Chloride (Flush - Normal Saline) 10 ml IVF PRN PRN PRN Reason: Saline Flush Tramadol HCl (Ultram) 50 mg PO Q4H PRN PRN Reason: Moderate Pain (4-6) Last Admin: 10/12/17 13:23 Dose: 50 mg Tramadol HCl (Ultram) 100 mg PO Q4H PRN PRN Reason: Pain Last Admin: 10/14/17 14:13 Dose: 100 mg
[2017-10-14] MEDS ORDERED: Insulin Detemir 100 UNITS/ML 10 UNITS in Pre-Filled Syringe 1 EACH SC SCH ×2 (15:15→21:00)
[2017-10-14] MEDS: Famotidine 20 MG TAB PO SCH (20:19)
[2017-10-15] MEDS: Piperacillin/Tazobactam 3.375 GM, Admixture Fee 1 EACH in Sodium Chloride 0.9% 100 ML IVPB SCH ×4 (00:21→17:51)
[2017-10-15] MEDS: Vancomycin HCl 1 GM in Premix Bag 1 BAG IVPB SCH ×2 (02:42→09:10)
[2017-10-15] MEDS: Sodium Chloride 0.9% 1,000 ML IV SCH ×2 (02:42→17:56)
[2017-10-15 05:20] LABS: #Eosinphils 0.1 thou/uL (0.0-0.7); #Lymphocytes 1.2 thou/uL (1.20-3.40); #Monocytes 0.7 thou/uL (0.11-0.59); #Neutrophils 6.8 thou/uL (1.40-6.50); %Basophils 0.3 % (0.0-1.0); %Eosinophils 1.1 % (0.0-10.0); %Lymphocytes 13.3 % (21.0-51.0); %Monocytes 7.9 % (0.0-10.0); Hematocrit 35.9 % (42.0-52.0); Mean Platelet Volume 7.2 fL (7.4-10.4); Red Blood Cell (RBC) Count 3.85 mill/uL (4.70-6.10); White Blood Cell (WBC) Count 8.8 thou/uL (4.8-10.8)
[2017-10-15 05:39] LABS: Anion Gap 10 mmol/L (10-20); BUN (Urea Nitrogen) 11 mg/dL (8.9-20.6); Calc. Creatinine Clearance 71 mL/min (70-130); Calcium 8.5 mg/dL (7.8-10.44); Carbon Dioxide 27 mmol/L (22-29); Chloride 98 mmol/L (98-107); Estimated GFR-MDRD 68
[2017-10-15] MEDS: HumaLOG 300 UNITS/3 ML VIAL SC PRN ×2 (06:02→12:18)
[2017-10-15] MEDS: metFORMIN 500 MG TAB PO SCH ×2 (09:03→17:51)
[2017-10-15] MEDS: Polyethylene Glycol 3350 17 GM Packet PO SCH (09:03)
[2017-10-15] MEDS: Enoxaparin Sodium 40 MG/0.4 ML SYRINGE SC SCH (09:03)
[2017-10-15] MEDS: Insulin Detemir 100 UNITS/ML 10 UNITS in Pre-Filled Syringe 1 EACH SC SCH (09:09)
[2017-10-15 17:43] LABS: Vancomycin, Trough 35.5 ug/mL
[2017-10-15] MEDS ORDERED: Vancomycin HCl 1 GM in Premix Bag 1 BAG IVPB SCH (18:00)
--- NOTE | 2017-10-15 18:02 | PDOC.PN ---
- Subjective Encounter Start Date: 10/15/17 Encounter Start Time: 10:00 Pt seen for followup re: osteomyelitis. Denies chest pain, fevers, chills. - Objective MAR Reviewed: Yes Vital Signs & Weight: Vital Signs (12 hours) Temp Pulse Resp BP Pulse Ox 10/15/17 08:00 98.2 F 80 16 115/75 94 L Weight Admit Weight 143 lb Weight 143 lb 3.2 oz I&O: 10/14/17 10/15/17 10/16/17 06:59 06:59 06:59 Intake Total 1500 1000 Output Total 800 Balance 700 1000 Result Diagrams: 10/15/17 04:54 10/15/17 04:54 Additional Labs: Accuchecks 10/15/17 10/15/17 10/14/17 16:26 11:01 21:05 POC Glucose 192 H 204 H 296 H 10/14/17 05:20 POC Glucose 293 H Phys Exam - Physical Examination Constitutional: NAD HEENT: moist MMs Neck: supple Respiratory: clear to auscultation bilateral Cardiovascular: RRR Gastrointestinal: soft s/p L toe amputation Neurological: moves all 4 limbs Psychiatric: normal affect Dx/Plan (1) Toe osteomyelitis, left Code(s): M86.9 - OSTEOMYELITIS, UNSPECIFIED Status: Acute Comment: s/p amputation.Wound vac in place (2) Newly diagnosed diabetes Code(s): E11.9 - TYPE 2 DIABETES MELLITUS WITHOUT COMPLICATIONS Status: Acute (3) Hyponatremia Code(s): E87.1 - HYPO-OSMOLALITY AND HYPONATREMIA Status: Acute - Plan continue antibiotics, PT/OT, out of bed/ambulate * . Awaiting approval for woundvac. Will switch to oral antibiotics Review of Systems - Review of Systems Constitutional: negative: Fever, Chills, Sweats, Weakness, Malaise Respiratory: negative: Cough, Dry, Shortness of Breath, Hemoptysis, SOB with Excertion, Pleuritic Pain, Sputum, Wheezing Cardiovascular: negative: Chest Pain, Palpitations, Orthopnea, Paroxysmal Noc. Dyspnea, Edema, Light Headedness - Medications/Allergies Allergies/Adverse Reactions: Allergies Allergy/AdvReac Type Severity Reaction Status Date / Time No Known Allergies Allergy Verified 10/10/17 16:58 Medications: Current Medications Acetaminophen (Tylenol) 650 mg PO Q4H PRN PRN Reason: Headache/Fever or Pain Last Admin: 10/11/17 06:00 Dose: 650 mg Acetaminophen (Tylenol) 1,000 mg PO Q6H PRN PRN Reason: Moderate to Severe Pain (6-10) Al Hydroxide/Mg Hydroxide (Maalox) 30 ml PO Q6H PRN PRN Reason: Heartburn or Indigestion Benzonatate (Tessalon) 100 mg PO Q4H PRN PRN Reason: Cough Bisacodyl (Dulcolax) 10 mg PO DAILYPRN PRN PRN Reason: Constipation Calcium Carbonate (Tums) 1,000 mg PO Q4H PRN PRN Reason: Heartburn or Indigestion Clonidine (Catapres) 0.1 mg PO Q4H PRN PRN Reason: Systolic BP > 170 Dextrose/Water (Dextrose 50%) 25 gm SLOW IVP PRN PRN PRN Reason: Hypoglycemia Enoxaparin Sodium (Lovenox) 40 mg SC 0900 [facility] Last Admin: 10/15/17 09:03 Dose: 40 mg Famotidine (Pepcid) 20 mg PO 2100 [facility] Last Admin: 10/14/17 20:19 Dose: 20 mg Glucagon (Glucagon) 1 mg IM PRN PRN PRN Reason: Hypoglycemia Guaifenesin (Robitussin Sf) 200 mg PO Q4H PRN PRN Reason: Cough Hydralazine HCl (Apresoline) 10 mg SLOW IVP Q4H PRN PRN Reason: Systolic BP > 180 Dextrose/Water (D5w) 1,000 mls @ 0 mls/hr IV .Q0M PRN; As Directed PRN Reason: Hypoglycemia Piperacillin Sod/Tazobactam Sod 3.375 gm/ Miscellaneous Medication 1 each/ Sodium Chloride 100 mls @ 200 mls/hr IVPB Q6HR [facility] Last Admin: 10/15/17 17:51 Dose: 100 mls Sodium Chloride (Normal Saline 0.9%) 1,000 mls @ 75 mls/hr IV .[id number] [facility] Last Admin: 10/15/17 17:56 Dose: 1,000 mls Insulin Detemir 10 units/ (Miscellaneous Medication) 0.1 mls @ 0 mls/hr SC QAM [facility] Last Admin: 10/15/17 09:09 Dose: 0.1 mls Vancomycin HCl 1 gm/ Device 200 mls @ 200 mls/hr IVPB .PENDING LEVEL [facility] Insulin Human Lispro (Humalog) 0 units SC .MODERATE SLIDING SC PRN PRN Reason: Moderate Correctional Scale Last Admin: 10/15/17 12:18 Dose: 4 unit Insulin Human Lispro (Humalog) 0 units SC .BEDTIME SLIDING SC PRN PRN Reason: Bedtime Correctional Scale Last Admin: 10/14/17 21:25 Dose: 3 unit Loratadine (Claritin) 10 mg PO DAILYPRN PRN PRN Reason: Sinus Symptoms Lorazepam (Ativan) 1 mg PO Q4H PRN PRN Reason: Anxiety/Agitation Metformin HCl (Glucophage) 500 mg PO BID-[facility] Last Admin: 10/15/17 17:51 Dose: 500 mg Miscellaneous Medication (Pharmacy To Dose) 1 each IVPB PRN PRN PRN Reason: Pharmacy to dose Nitroglycerin (Nitrostat) 0.4 mg SL Q5MIN PRN PRN Reason: Chest Pain Ondansetron HCl (Zofran) 4 mg IVP Q6H PRN PRN Reason: Nausea/Vomiting Last Admin: 10/15/17 17:51 Dose: 4 mg Polyethylene Glycol (Miralax) 17 gm PO DAILY [facility] Last Admin: 10/15/17 09:03 Dose: 17 gm Senna (Senokot) 2 tab PO HSPRN PRN PRN Reason: Constipation Sodium Chloride (Flush - Normal Saline) 10 ml IVF Q12HR [facility] Last Admin: 10/15/17 09:03 Dose: Not Given Sodium Chloride (Flush - Normal Saline) 10 ml IVF PRN PRN PRN Reason: Saline Flush Tramadol HCl (Ultram) 50 mg PO Q4H PRN PRN Reason: Moderate Pain (4-6) Last Admin: 10/12/17 13:23 Dose: 50 mg Tramadol HCl (Ultram) 100 mg PO Q4H PRN PRN Reason: Pain Last Admin: 10/14/17 14:13 Dose: 100 mg
[2017-10-15] MEDS: Famotidine 20 MG TAB PO SCH (21:10)
[2017-10-16] MEDS: Sodium Chloride 0.9% 1,000 ML IV SCH ×2 (03:18→17:29)
[2017-10-16 05:45] LABS: #Eosinphils 0.1 thou/uL (0.0-0.7); #Lymphocytes 1.4 thou/uL (1.20-3.40); #Monocytes 0.7 thou/uL (0.11-0.59); #Neutrophils 5.2 thou/uL (1.40-6.50); %Basophils 0.1 % (0.0-1.0); %Eosinophils 0.8 % (0.0-10.0); %Monocytes 8.9 % (0.0-10.0); Mean Platelet Volume 7.1 fL (7.4-10.4); Red Blood Cell (RBC) Count 3.76 mill/uL (4.70-6.10); White Blood Cell (WBC) Count 7.3 thou/uL (4.8-10.8)
[2017-10-16 06:16] LABS: Anion Gap 10 mmol/L (10-20); BUN (Urea Nitrogen) 8 mg/dL (8.9-20.6); Calc. Creatinine Clearance 61 mL/min (70-130); Calcium 8.6 mg/dL (7.8-10.44); Carbon Dioxide 25 mmol/L (22-29); Chloride 104 mmol/L (98-107); Estimated GFR-MDRD 56; Vancomycin, Trough 19.1 ug/mL
[2017-10-16] MEDS: Insulin Detemir 100 UNITS/ML 10 UNITS in Pre-Filled Syringe 1 EACH SC SCH (09:21)
[2017-10-16] MEDS: metFORMIN 500 MG TAB PO SCH ×2 (09:22→17:26)
[2017-10-16] MEDS: Enoxaparin Sodium 40 MG/0.4 ML SYRINGE SC SCH (09:22)
[2017-10-16] MEDS: Polyethylene Glycol 3350 17 GM Packet PO SCH (09:23)
[2017-10-16] MEDS: traMADol HCl 50 MG TAB PO PRN (11:22)
[2017-10-16] MEDS: HumaLOG 300 UNITS/3 ML VIAL SC PRN (12:50)
--- NOTE | 2017-10-16 12:56 | PDOC.PN ---
- Subjective Encounter Start Date: 10/16/17 Encounter Start Time: 09:20 Pt seen for followup re: osteomyelitis. Feels well, no fevers. - Objective Vital Signs & Weight: Vital Signs (12 hours) Temp Pulse Resp BP Pulse Ox 10/16/17 07:52 98.4 F 89 16 137/83 92 L Weight Admit Weight 143 lb Weight 143 lb 3.2 oz I&O: 10/15/17 10/16/17 10/17/17 06:59 06:59 06:59 Intake Total 1000 1100 Balance 1000 1100 Result Diagrams: 10/16/17 04:24 10/16/17 04:24 Additional Labs: Accuchecks 10/16/17 10/16/17 10/15/17 11:44 05:43 20:55 POC Glucose 227 H 165 H 191 H 10/15/17 16:26 POC Glucose 192 H Phys Exam - Physical Examination Constitutional: NAD HEENT: moist MMs Neck: supple Respiratory: clear to auscultation bilateral Cardiovascular: RRR Gastrointestinal: soft Musculoskeletal: pulses present Neurological: moves all 4 limbs Psychiatric: normal affect Deviation from normal: Wound vac over L foot Dx/Plan (1) Toe osteomyelitis, left Code(s): M86.9 - OSTEOMYELITIS, UNSPECIFIED Status: Acute Comment: s/p amputation.Wound vac in place (2) Newly diagnosed diabetes Code(s): E11.9 - TYPE 2 DIABETES MELLITUS WITHOUT COMPLICATIONS Status: Acute (3) Hyponatremia Code(s): E87.1 - HYPO-OSMOLALITY AND HYPONATREMIA Status: Acute - Plan continue antibiotics, PT/OT, out of bed/ambulate * . Pt is on oral antibiotics. Awaiting wound vac approval. Review of Systems - Review of Systems Constitutional: negative: Fever, Chills, Sweats, Weakness, Malaise Cardiovascular: negative: Chest Pain, Palpitations, Orthopnea, Paroxysmal Noc. Dyspnea, Edema, Light Headedness Musculoskeletal: negative: Neck Pain, Shoulder Pain, Arm Pain, Back Pain, Hand Pain, Leg Pain, Foot Pain - Medications/Allergies Allergies/Adverse Reactions: Allergies Allergy/AdvReac Type Severity Reaction Status Date / Time No Known Allergies Allergy Verified 10/10/17 16:58 Medications: Current Medications Acetaminophen (Tylenol) 650 mg PO Q4H PRN PRN Reason: Headache/Fever or Pain Last Admin: 10/11/17 06:00 Dose: 650 mg Acetaminophen (Tylenol) 1,000 mg PO Q6H PRN PRN Reason: Moderate to Severe Pain (6-10) Al Hydroxide/Mg Hydroxide (Maalox) 30 ml PO Q6H PRN PRN Reason: Heartburn or Indigestion Ampicillin (Polycillin) 250 mg PO QID [facility] Last Admin: 10/16/17 09:22 Dose: 250 mg Benzonatate (Tessalon) 100 mg PO Q4H PRN PRN Reason: Cough Bisacodyl (Dulcolax) 10 mg PO DAILYPRN PRN PRN Reason: Constipation Calcium Carbonate (Tums) 1,000 mg PO Q4H PRN PRN Reason: Heartburn or Indigestion Clonidine (Catapres) 0.1 mg PO Q4H PRN PRN Reason: Systolic BP > 170 Dextrose/Water (Dextrose 50%) 25 gm SLOW IVP PRN PRN PRN Reason: Hypoglycemia Enoxaparin Sodium (Lovenox) 40 mg SC 0900 [facility] Last Admin: 10/16/17 09:22 Dose: 40 mg Famotidine (Pepcid) 20 mg PO 2100 [facility] Last Admin: 10/15/17 21:10 Dose: 20 mg Glucagon (Glucagon) 1 mg IM PRN PRN PRN Reason: Hypoglycemia Guaifenesin (Robitussin Sf) 200 mg PO Q4H PRN PRN Reason: Cough Hydralazine HCl (Apresoline) 10 mg SLOW IVP Q4H PRN PRN Reason: Systolic BP > 180 Dextrose/Water (D5w) 1,000 mls @ 0 mls/hr IV .Q0M PRN; As Directed PRN Reason: Hypoglycemia Sodium Chloride (Normal Saline 0.9%) 1,000 mls @ 75 mls/hr IV .[id number] [facility] Last Admin: 10/16/17 03:18 Dose: 1,000 mls Insulin Detemir 10 units/ (Miscellaneous Medication) 0.1 mls @ 0 mls/hr SC QAM [facility] Last Admin: 10/16/17 09:21 Dose: 0.1 mls Insulin Human Lispro (Humalog) 0 units SC .MODERATE SLIDING SC PRN PRN Reason: Moderate Correctional Scale Last Admin: 10/15/17 12:18 Dose: 4 unit Insulin Human Lispro (Humalog) 0 units SC .BEDTIME SLIDING SC PRN PRN Reason: Bedtime Correctional Scale Last Admin: 10/14/17 21:25 Dose: 3 unit Loratadine (Claritin) 10 mg PO DAILYPRN PRN PRN Reason: Sinus Symptoms Lorazepam (Ativan) 1 mg PO Q4H PRN PRN Reason: Anxiety/Agitation Last Admin: 10/16/17 11:23 Dose: 1 mg Metformin HCl (Glucophage) 500 mg PO BID-[facility] Last Admin: 10/16/17 09:22 Dose: 500 mg Nitroglycerin (Nitrostat) 0.4 mg SL Q5MIN PRN PRN Reason: Chest Pain Ondansetron HCl (Zofran) 4 mg IVP Q6H PRN PRN Reason: Nausea/Vomiting Last Admin: 10/15/17 17:51 Dose: 4 mg Polyethylene Glycol (Miralax) 17 gm PO DAILY [facility] Last Admin: 10/16/17 09:23 Dose: 17 gm Senna (Senokot) 2 tab PO HSPRN PRN PRN Reason: Constipation Sodium Chloride (Flush - Normal Saline) 10 ml IVF Q12HR [facility] Last Admin: 10/16/17 09:23 Dose: Not Given Sodium Chloride (Flush - Normal Saline) 10 ml IVF PRN PRN PRN Reason: Saline Flush Tramadol HCl (Ultram) 50 mg PO Q4H PRN PRN Reason: Moderate Pain (4-6) Last Admin: 10/12/17 13:23 Dose: 50 mg Tramadol HCl (Ultram) 100 mg PO Q4H PRN PRN Reason: Pain Last Admin: 10/16/17 11:22 Dose: 100 mg
[2017-10-16] MEDS: Famotidine 20 MG TAB PO SCH (21:33)
[2017-10-17] MEDS: Sodium Chloride 0.9% 1,000 ML IV SCH ×2 (08:03→21:11)
[2017-10-17] MEDS: Insulin Detemir 100 UNITS/ML 10 UNITS in Pre-Filled Syringe 1 EACH SC SCH (08:03)
[2017-10-17] MEDS: metFORMIN 500 MG TAB PO SCH ×2 (08:04→16:02)
[2017-10-17] MEDS: Enoxaparin Sodium 40 MG/0.4 ML SYRINGE SC SCH (08:04)
[2017-10-17] MEDS: Polyethylene Glycol 3350 17 GM Packet PO SCH (08:04)
--- NOTE | 2017-10-17 11:52 | PDOC.PN ---
- Subjective Encounter Start Date: 10/17/17 Encounter Start Time: 09:20 Pt seen for followup re: toe osteomyelitis. Denies chest pain or fevers. - Objective MAR Reviewed: Yes Vital Signs & Weight: Vital Signs (12 hours) Temp Pulse Resp BP Pulse Ox 10/17/17 11:48 98.7 F 61 16 126/74 10/17/17 08:00 98.9 F 88 16 10/17/17 07:40 98.9 F 88 16 138/79 91 L Weight Admit Weight 143 lb Weight 143 lb 3.2 oz I&O: 10/16/17 10/17/17 10/18/17 06:59 06:59 06:59 Intake Total 1100 1025 Output Total 1750 Balance 1100 -725 Result Diagrams: 10/16/17 04:24 10/16/17 04:24 Additional Labs: Accuchecks 10/17/17 10/16/17 10/16/17 04:40 20:15 16:47 POC Glucose 112 H 130 H 106 10/16/17 11:44 POC Glucose 227 H Phys Exam - Physical Examination Constitutional: NAD HEENT: moist MMs Neck: supple Respiratory: clear to auscultation bilateral Cardiovascular: RRR Gastrointestinal: soft Wound vac over L foot Neurological: moves all 4 limbs Psychiatric: normal affect Dx/Plan (1) Toe osteomyelitis, left Code(s): M86.9 - OSTEOMYELITIS, UNSPECIFIED Status: Acute Comment: s/p amputation.Wound vac in place (2) Newly diagnosed diabetes Code(s): E11.9 - TYPE 2 DIABETES MELLITUS WITHOUT COMPLICATIONS Status: Acute (3) Hyponatremia Code(s): E87.1 - HYPO-OSMOLALITY AND HYPONATREMIA Status: Acute - Plan continue antibiotics, PT/OT, out of bed/ambulate, DVT proph w/lovenox * . Continue ampicillin. Awaiting wound vac approval. Review of Systems - Review of Systems Constitutional: negative: Fever, Chills, Sweats, Weakness, Malaise Cardiovascular: negative: Chest Pain, Palpitations, Orthopnea, Paroxysmal Noc. Dyspnea, Edema, Light Headedness - Medications/Allergies Allergies/Adverse Reactions: Allergies Allergy/AdvReac Type Severity Reaction Status Date / Time No Known Allergies Allergy Verified 10/10/17 16:58 Medications: Current Medications Acetaminophen (Tylenol) 650 mg PO Q4H PRN PRN Reason: Headache/Fever or Pain Last Admin: 10/11/17 06:00 Dose: 650 mg Acetaminophen (Tylenol) 1,000 mg PO Q6H PRN PRN Reason: Moderate to Severe Pain (6-10) Al Hydroxide/Mg Hydroxide (Maalox) 30 ml PO Q6H PRN PRN Reason: Heartburn or Indigestion Ampicillin (Polycillin) 250 mg PO QID [facility] Last Admin: 10/17/17 08:03 Dose: 250 mg Benzonatate (Tessalon) 100 mg PO Q4H PRN PRN Reason: Cough Bisacodyl (Dulcolax) 10 mg PO DAILYPRN PRN PRN Reason: Constipation Calcium Carbonate (Tums) 1,000 mg PO Q4H PRN PRN Reason: Heartburn or Indigestion Clonidine (Catapres) 0.1 mg PO Q4H PRN PRN Reason: Systolic BP > 170 Dextrose/Water (Dextrose 50%) 25 gm SLOW IVP PRN PRN PRN Reason: Hypoglycemia Enoxaparin Sodium (Lovenox) 40 mg SC 0900 [facility] Last Admin: 10/17/17 08:04 Dose: 40 mg Famotidine (Pepcid) 20 mg PO 2100 [facility] Last Admin: 10/16/17 21:33 Dose: 20 mg Glucagon (Glucagon) 1 mg IM PRN PRN PRN Reason: Hypoglycemia Guaifenesin (Robitussin Sf) 200 mg PO Q4H PRN PRN Reason: Cough Hydralazine HCl (Apresoline) 10 mg SLOW IVP Q4H PRN PRN Reason: Systolic BP > 180 Dextrose/Water (D5w) 1,000 mls @ 0 mls/hr IV .Q0M PRN; As Directed PRN Reason: Hypoglycemia Sodium Chloride (Normal Saline 0.9%) 1,000 mls @ 75 mls/hr IV .[id number] [facility] Last Admin: 10/17/17 08:03 Dose: 1,000 mls Insulin Detemir 10 units/ (Miscellaneous Medication) 0.1 mls @ 0 mls/hr SC QAM [facility] Last Admin: 10/17/17 08:03 Dose: 0.1 mls Insulin Human Lispro (Humalog) 0 units SC .MODERATE SLIDING SC PRN PRN Reason: Moderate Correctional Scale Last Admin: 10/16/17 12:50 Dose: 4 unit Insulin Human Lispro (Humalog) 0 units SC .BEDTIME SLIDING SC PRN PRN Reason: Bedtime Correctional Scale Last Admin: 10/14/17 21:25 Dose: 3 unit Loratadine (Claritin) 10 mg PO DAILYPRN PRN PRN Reason: Sinus Symptoms Lorazepam (Ativan) 1 mg PO Q4H PRN PRN Reason: Anxiety/Agitation Last Admin: 10/16/17 11:23 Dose: 1 mg Metformin HCl (Glucophage) 500 mg PO BID-[facility] Last Admin: 10/17/17 08:04 Dose: 500 mg Nitroglycerin (Nitrostat) 0.4 mg SL Q5MIN PRN PRN Reason: Chest Pain Ondansetron HCl (Zofran) 4 mg IVP Q6H PRN PRN Reason: Nausea/Vomiting Last Admin: 10/15/17 17:51 Dose: 4 mg Polyethylene Glycol (Miralax) 17 gm PO DAILY [facility] Last Admin: 10/17/17 08:04 Dose: 17 gm Senna (Senokot) 2 tab PO HSPRN PRN PRN Reason: Constipation Sodium Chloride (Flush - Normal Saline) 10 ml IVF Q12HR [facility] Last Admin: 10/17/17 08:04 Dose: Not Given Sodium Chloride (Flush - Normal Saline) 10 ml IVF PRN PRN PRN Reason: Saline Flush Tramadol HCl (Ultram) 50 mg PO Q4H PRN PRN Reason: Moderate Pain (4-6) Last Admin: 10/12/17 13:23 Dose: 50 mg Tramadol HCl (Ultram) 100 mg PO Q4H PRN PRN Reason: Pain Last Admin: 10/16/17 11:22 Dose: 100 mg
[2017-10-17] MEDS: Famotidine 20 MG TAB PO SCH (22:34)
[2017-10-18 05:51] LABS: #Basophils 0.1 thou/uL (0.0-0.2); #Eosinphils 0.1 thou/uL (0.0-0.7); #Lymphocytes 1.3 thou/uL (1.20-3.40); #Monocytes 0.5 thou/uL (0.11-0.59); #Neutrophils 4.4 thou/uL (1.40-6.50); %Eosinophils 1.5 % (0.0-10.0); %Lymphocytes 19.9 % (21.0-51.0); %Monocytes 8.6 % (0.0-10.0); Hematocrit 35.6 % (42.0-52.0); Red Blood Cell (RBC) Count 3.84 mill/uL (4.70-6.10); White Blood Cell (WBC) Count 6.3 thou/uL (4.8-10.8)
[2017-10-18 06:16] LABS: Anion Gap 12 mmol/L (10-20); BUN (Urea Nitrogen) 13 mg/dL (8.9-20.6); Calc. Creatinine Clearance 67 mL/min (70-130); Calcium 8.6 mg/dL (7.8-10.44); Carbon Dioxide 24 mmol/L (22-29); Chloride 104 mmol/L (98-107); Estimated GFR-MDRD 63
[2017-10-18] MEDS: metFORMIN 500 MG TAB PO SCH ×2 (09:03→17:01)
[2017-10-18] MEDS: Enoxaparin Sodium 40 MG/0.4 ML SYRINGE SC SCH (09:04)
[2017-10-18] MEDS: Polyethylene Glycol 3350 17 GM Packet PO SCH (09:04)
[2017-10-18] MEDS: Insulin Detemir 100 UNITS/ML 10 UNITS in Pre-Filled Syringe 1 EACH SC SCH (09:20)
[2017-10-18] MEDS: Sodium Chloride 0.9% 1,000 ML IV SCH (09:23)
--- NOTE | 2017-10-18 10:43 | PDOC.PN ---
- Subjective Encounter Start Date: 10/18/17 Encounter Start Time: 08:20 Pt seen for followup re; osteomyelitis. No new complaints. - Objective MAR Reviewed: Yes Vital Signs & Weight: Vital Signs (12 hours) Temp Pulse Resp BP Pulse Ox 10/18/17 08:00 98.3 F 73 18 94 L 10/18/17 07:51 98.3 F 73 18 120/75 94 L Weight Admit Weight 143 lb Weight 143 lb 3.2 oz I&O: 10/17/17 10/18/17 10/19/17 06:59 06:59 06:59 Intake Total 1025 3220 180 Output Total 4320 0775 Balance -525 -590 180 Result Diagrams: 10/18/17 04:28 10/18/17 04:28 Additional Labs: Accuchecks 10/17/17 10/17/17 16:38 11:45 POC Glucose 110 98 Phys Exam - Physical Examination Constitutional: NAD HEENT: moist MMs Respiratory: clear to auscultation bilateral Cardiovascular: RRR Gastrointestinal: soft Musculoskeletal: pulses present Wound vac L foot Neurological: moves all 4 limbs Psychiatric: normal affect Dx/Plan (1) Toe osteomyelitis, left Code(s): M86.9 - OSTEOMYELITIS, UNSPECIFIED Status: Acute Comment: s/p amputation.Wound vac in place (2) Newly diagnosed diabetes Code(s): E11.9 - TYPE 2 DIABETES MELLITUS WITHOUT COMPLICATIONS Status: Acute (3) Hyponatremia Code(s): E87.1 - HYPO-OSMOLALITY AND HYPONATREMIA Status: Resolved - Plan continue antibiotics, PT/OT * . Awaiting wound vac approval. Likely discharge tomorrow. Continue ampicillin. Review of Systems - Review of Systems Cardiovascular: negative: Chest Pain, Palpitations, Orthopnea, Paroxysmal Noc. Dyspnea, Edema, Light Headedness Musculoskeletal: negative: Neck Pain, Shoulder Pain, Arm Pain, Back Pain, Hand Pain, Leg Pain, Foot Pain - Medications/Allergies Allergies/Adverse Reactions: Allergies Allergy/AdvReac Type Severity Reaction Status Date / Time No Known Allergies Allergy Verified 10/10/17 16:58 Medications: Current Medications Acetaminophen (Tylenol) 650 mg PO Q4H PRN PRN Reason: Headache/Fever or Pain Last Admin: 10/11/17 06:00 Dose: 650 mg Acetaminophen (Tylenol) 1,000 mg PO Q6H PRN PRN Reason: Moderate to Severe Pain (6-10) Al Hydroxide/Mg Hydroxide (Maalox) 30 ml PO Q6H PRN PRN Reason: Heartburn or Indigestion Ampicillin (Polycillin) 250 mg PO QID [facility] Last Admin: 10/18/17 09:04 Dose: 250 mg Benzonatate (Tessalon) 100 mg PO Q4H PRN PRN Reason: Cough Bisacodyl (Dulcolax) 10 mg PO DAILYPRN PRN PRN Reason: Constipation Calcium Carbonate (Tums) 1,000 mg PO Q4H PRN PRN Reason: Heartburn or Indigestion Clonidine (Catapres) 0.1 mg PO Q4H PRN PRN Reason: Systolic BP > 170 Dextrose/Water (Dextrose 50%) 25 gm SLOW IVP PRN PRN PRN Reason: Hypoglycemia Enoxaparin Sodium (Lovenox) 40 mg SC 0900 [facility] Last Admin: 10/18/17 09:04 Dose: 40 mg Famotidine (Pepcid) 20 mg PO 2100 [facility] Last Admin: 10/17/17 22:34 Dose: 20 mg Glucagon (Glucagon) 1 mg IM PRN PRN PRN Reason: Hypoglycemia Guaifenesin (Robitussin Sf) 200 mg PO Q4H PRN PRN Reason: Cough Hydralazine HCl (Apresoline) 10 mg SLOW IVP Q4H PRN PRN Reason: Systolic BP > 180 Dextrose/Water (D5w) 1,000 mls @ 0 mls/hr IV .Q0M PRN; As Directed PRN Reason: Hypoglycemia Sodium Chloride (Normal Saline 0.9%) 1,000 mls @ 75 mls/hr IV .[id number] [facility] Last Admin: 10/18/17 09:23 Dose: Not Given Insulin Detemir 10 units/ (Miscellaneous Medication) 0.1 mls @ 0 mls/hr SC QAM [facility] Last Admin: 10/18/17 09:20 Dose: 0.1 mls Insulin Human Lispro (Humalog) 0 units SC .MODERATE SLIDING SC PRN PRN Reason: Moderate Correctional Scale Last Admin: 10/16/17 12:50 Dose: 4 unit Insulin Human Lispro (Humalog) 0 units SC .BEDTIME SLIDING SC PRN PRN Reason: Bedtime Correctional Scale Last Admin: 10/14/17 21:25 Dose: 3 unit Loratadine (Claritin) 10 mg PO DAILYPRN PRN PRN Reason: Sinus Symptoms Lorazepam (Ativan) 1 mg PO Q4H PRN PRN Reason: Anxiety/Agitation Last Admin: 10/16/17 11:23 Dose: 1 mg Metformin HCl (Glucophage) 500 mg PO BID-[facility] Last Admin: 10/18/17 09:03 Dose: 500 mg Nitroglycerin (Nitrostat) 0.4 mg SL Q5MIN PRN PRN Reason: Chest Pain Ondansetron HCl (Zofran) 4 mg IVP Q6H PRN PRN Reason: Nausea/Vomiting Last Admin: 10/15/17 17:51 Dose: 4 mg Polyethylene Glycol (Miralax) 17 gm PO DAILY [facility] Last Admin: 10/18/17 09:04 Dose: 17 gm Senna (Senokot) 2 tab PO HSPRN PRN PRN Reason: Constipation Sodium Chloride (Flush - Normal Saline) 10 ml IVF Q12HR [facility] Last Admin: 10/18/17 09:05 Dose: Not Given Sodium Chloride (Flush - Normal Saline) 10 ml IVF PRN PRN PRN Reason: Saline Flush Tramadol HCl (Ultram) 50 mg PO Q4H PRN PRN Reason: Moderate Pain (4-6) Last Admin: 10/12/17 13:23 Dose: 50 mg Tramadol HCl (Ultram) 100 mg PO Q4H PRN PRN Reason: Pain Last Admin: 10/16/17 11:22 Dose: 100 mg
[2017-10-18] MEDS: HumaLOG 300 UNITS/3 ML VIAL SC PRN (17:01)
[2017-10-18] MEDS: Famotidine 20 MG TAB PO SCH (19:59)
[2017-10-19] MEDS: Sodium Chloride 0.9% 1,000 ML IV SCH ×2 (00:26→07:17)
[2017-10-19 05:43] LABS: #Eosinphils 0.1 thou/uL (0.0-0.7); #Lymphocytes 1.2 thou/uL (1.20-3.40); #Monocytes 0.6 thou/uL (0.11-0.59); #Neutrophils 3.5 thou/uL (1.40-6.50); %Basophils 0.4 % (0.0-1.0); %Eosinophils 1.4 % (0.0-10.0); %Lymphocytes 21.8 % (21.0-51.0); %Monocytes 10.8 % (0.0-10.0); Hematocrit 36.7 % (42.0-52.0); Mean Platelet Volume 6.9 fL (7.4-10.4); Red Blood Cell (RBC) Count 3.99 mill/uL (4.70-6.10); White Blood Cell (WBC) Count 5.4 thou/uL (4.8-10.8)
[2017-10-19 05:58] LABS: Anion Gap 11 mmol/L (10-20); BUN (Urea Nitrogen) 11 mg/dL (8.9-20.6); Calc. Creatinine Clearance 63 mL/min (70-130); Calcium 9.2 mg/dL (7.8-10.44); Carbon Dioxide 26 mmol/L (22-29); Chloride 105 mmol/L (98-107); Estimated GFR-MDRD 59
[2017-10-19] MEDS: Polyethylene Glycol 3350 17 GM Packet PO SCH (07:53)
[2017-10-19] MEDS: Enoxaparin Sodium 40 MG/0.4 ML SYRINGE SC SCH (07:53)
[2017-10-19] MEDS: metFORMIN 500 MG TAB PO SCH ×2 (07:54→17:43)
[2017-10-19] MEDS: traMADol HCl 50 MG TAB PO PRN ×2 (09:18→15:08)
[2017-10-19] MEDS: Insulin Detemir 100 UNITS/ML 10 UNITS in Pre-Filled Syringe 1 EACH SC SCH (09:21)
--- NOTE | 2017-10-19 12:08 | PRG ---
DATE OF SERVICE: 10/19/2017 SUBJECTIVE: Mr. Nava is doing well today. His skin flap has some necrotic edges. After informed consent and using the translation, this was debrided sharply at the bedside. The patient has hemato ma in the wound indicative of bleeding. There is no cellulitis. At this point, the wound seemed to be healing. We would recommend he be discharged home with a wound VAC and I will see him in [facility] wound care to view his wound in the next 2 weeks. He can be sent home with oral antibiotics. The wound care outpatient [facility] is not yet available and he can be discharged home as soon as avail able, on oral antibiotics from my standpoint. I will see the patient in the hospital as needed. Ple ase call if necessary. I will plan on seeing him as an outpatient.
--- NOTE | 2017-10-19 14:06 | PDOC.PN ---
- Subjective Encounter Start Date: 10/19/17 Encounter Start Time: 09:40 Pt seen for followup re: toe osteomyelitis. No new complaints. - Objective MAR Reviewed: Yes Vital Signs & Weight: Vital Signs (12 hours) Temp Pulse Resp BP Pulse Ox 10/19/17 07:59 98.4 F 83 16 96 10/19/17 07:26 98.4 F 83 16 112/72 96 Weight Admit Weight 143 lb Weight 143 lb 3.2 oz I&O: 10/18/17 10/19/17 10/20/17 06:59 06:59 06:59 Intake Total 3220 1860 420 Output Total 3925 1600 Balance -705 260 420 Result Diagrams: 10/19/17 04:40 10/19/17 04:40 Additional Labs: Accuchecks 10/19/17 10/18/17 10/18/17 05:47 20:51 16:09 POC Glucose 86 87 153 H 10/18/17 10/17/17 05:47 20:09 POC Glucose 117 H 131 H Phys Exam - Physical Examination Constitutional: NAD HEENT: moist MMs Respiratory: clear to auscultation bilateral Cardiovascular: RRR Gastrointestinal: soft Neurological: moves all 4 limbs Dx/Plan (1) Toe osteomyelitis, left Code(s): M86.9 - OSTEOMYELITIS, UNSPECIFIED Status: Acute Comment: s/p amputation.Wound vac in place (2) Newly diagnosed diabetes Code(s): E11.9 - TYPE 2 DIABETES MELLITUS WITHOUT COMPLICATIONS Status: Acute (3) Hyponatremia Code(s): E87.1 - HYPO-OSMOLALITY AND HYPONATREMIA Status: Resolved - Plan Continue accuchecks, insulin sliding scale. Awaiting wound vac approval. * . Review of Systems - Review of Systems Respiratory: negative: Cough, Dry, Shortness of Breath, Hemoptysis, SOB with Excertion, Pleuritic Pain, Sputum, Wheezing Cardiovascular: negative: Chest Pain, Palpitations, Orthopnea, Paroxysmal Noc. Dyspnea, Edema, Light Headedness - Medications/Allergies Allergies/Adverse Reactions: Allergies Allergy/AdvReac Type Severity Reaction Status Date / Time No Known Allergies Allergy Verified 10/10/17 16:58 Medications: Current Medications Acetaminophen (Tylenol) 650 mg PO Q4H PRN PRN Reason: Headache/Fever or Pain Last Admin: 10/11/17 06:00 Dose: 650 mg Acetaminophen (Tylenol) 1,000 mg PO Q6H PRN PRN Reason: Moderate to Severe Pain (6-10) Al Hydroxide/Mg Hydroxide (Maalox) 30 ml PO Q6H PRN PRN Reason: Heartburn or Indigestion Ampicillin (Polycillin) 250 mg PO QID [facility] Last Admin: 10/19/17 12:39 Dose: 250 mg Benzonatate (Tessalon) 100 mg PO Q4H PRN PRN Reason: Cough Bisacodyl (Dulcolax) 10 mg PO DAILYPRN PRN PRN Reason: Constipation Calcium Carbonate (Tums) 1,000 mg PO Q4H PRN PRN Reason: Heartburn or Indigestion Clonidine (Catapres) 0.1 mg PO Q4H PRN PRN Reason: Systolic BP > 170 Dextrose/Water (Dextrose 50%) 25 gm SLOW IVP PRN PRN PRN Reason: Hypoglycemia Enoxaparin Sodium (Lovenox) 40 mg SC 0900 [facility] Last Admin: 10/19/17 07:53 Dose: 40 mg Famotidine (Pepcid) 20 mg PO 2100 [facility] Last Admin: 10/18/17 19:59 Dose: 20 mg Glucagon (Glucagon) 1 mg IM PRN PRN PRN Reason: Hypoglycemia Guaifenesin (Robitussin Sf) 200 mg PO Q4H PRN PRN Reason: Cough Hydralazine HCl (Apresoline) 10 mg SLOW IVP Q4H PRN PRN Reason: Systolic BP > 180 Dextrose/Water (D5w) 1,000 mls @ 0 mls/hr IV .Q0M PRN; As Directed PRN Reason: Hypoglycemia Sodium Chloride (Normal Saline 0.9%) 1,000 mls @ 75 mls/hr IV .[id number] [facility] Last Admin: 10/19/17 07:17 Dose: Not Given Insulin Detemir 10 units/ (Miscellaneous Medication) 0.1 mls @ 0 mls/hr SC QAM [facility] Last Admin: 10/19/17 09:21 Dose: 0.1 mls Insulin Human Lispro (Humalog) 0 units SC .MODERATE SLIDING SC PRN PRN Reason: Moderate Correctional Scale Last Admin: 10/18/17 17:01 Dose: 2 unit Insulin Human Lispro (Humalog) 0 units SC .BEDTIME SLIDING SC PRN PRN Reason: Bedtime Correctional Scale Last Admin: 10/14/17 21:25 Dose: 3 unit Loratadine (Claritin) 10 mg PO DAILYPRN PRN PRN Reason: Sinus Symptoms Lorazepam (Ativan) 1 mg PO Q4H PRN PRN Reason: Anxiety/Agitation Last Admin: 10/16/17 11:23 Dose: 1 mg Metformin HCl (Glucophage) 500 mg PO BID-[facility] Last Admin: 10/19/17 07:54 Dose: 500 mg Nitroglycerin (Nitrostat) 0.4 mg SL Q5MIN PRN PRN Reason: Chest Pain Ondansetron HCl (Zofran) 4 mg IVP Q6H PRN PRN Reason: Nausea/Vomiting Last Admin: 10/15/17 17:51 Dose: 4 mg Polyethylene Glycol (Miralax) 17 gm PO DAILY [facility] Last Admin: 10/19/17 07:53 Dose: 17 gm Senna (Senokot) 2 tab PO HSPRN PRN PRN Reason: Constipation Sodium Chloride (Flush - Normal Saline) 10 ml IVF Q12HR [facility] Last Admin: 10/19/17 07:53 Dose: Not Given Sodium Chloride (Flush - Normal Saline) 10 ml IVF PRN PRN PRN Reason: Saline Flush Tramadol HCl (Ultram) 50 mg PO Q4H PRN PRN Reason: Moderate Pain (4-6) Last Admin: 10/12/17 13:23 Dose: 50 mg Tramadol HCl (Ultram) 100 mg PO Q4H PRN PRN Reason: Pain Last Admin: 10/19/17 09:18 Dose: 100 mg
[2017-10-19] MEDS: Famotidine 20 MG TAB PO SCH (20:58)
[2017-10-20] MEDS: Sodium Chloride 0.9% 1,000 ML IV SCH ×3 (05:23→23:46)
[2017-10-20] MEDS: traMADol HCl 50 MG TAB PO PRN (09:17)
[2017-10-20] MEDS: metFORMIN 500 MG TAB PO SCH ×2 (09:19→17:08)
[2017-10-20] MEDS: Insulin Detemir 100 UNITS/ML 10 UNITS in Pre-Filled Syringe 1 EACH SC SCH (09:20)
[2017-10-20] MEDS: Enoxaparin Sodium 40 MG/0.4 ML SYRINGE SC SCH (09:21)
[2017-10-20] MEDS: Polyethylene Glycol 3350 17 GM Packet PO SCH (09:22)
--- NOTE | 2017-10-20 17:54 | PDOC.PN ---
- Subjective Encounter Start Date: 10/20/17 Encounter Start Time: 17:53 Pt seen for followup re: osteomyelitis. No complaints. - Objective Vital Signs & Weight: Vital Signs (12 hours) Temp Pulse Resp BP Pulse Ox 10/20/17 08:05 98.3 F 82 16 115/77 96 10/20/17 08:00 98.3 F 82 16 96 Weight Admit Weight 143 lb Weight 143 lb 3.2 oz I&O: 10/19/17 10/20/17 10/21/17 06:59 06:59 06:59 Intake Total 1860 1970 Output Total 1600 800 Balance 260 1170 Result Diagrams: 10/19/17 04:40 10/19/17 04:40 Additional Labs: Accuchecks 10/20/17 10/20/17 10/20/17 16:28 11:16 04:19 POC Glucose 105 175 H 175 H Phys Exam - Physical Examination Constitutional: NAD HEENT: moist MMs Neck: no JVD Respiratory: clear to auscultation bilateral Cardiovascular: RRR Musculoskeletal: pulses present Wound vac+ Neurological: normal sensation Skin: no rash Dx/Plan (1) Toe osteomyelitis, left Code(s): M86.9 - OSTEOMYELITIS, UNSPECIFIED Status: Acute Comment: s/p amputation.Wound vac in place (2) Newly diagnosed diabetes Code(s): E11.9 - TYPE 2 DIABETES MELLITUS WITHOUT COMPLICATIONS Status: Acute (3) Hyponatremia Code(s): E87.1 - HYPO-OSMOLALITY AND HYPONATREMIA Status: Resolved - Plan * . Continue ampicillin. Continue insulin. Pt awaiting ride home. Review of Systems - Review of Systems Cardiovascular: negative: Chest Pain, Palpitations, Orthopnea, Paroxysmal Noc. Dyspnea, Edema, Light Headedness Gastrointestinal: negative: Nausea, Vomiting, Abdominal Pain, Diarrhea, Constipation, Melena, Hematochezia - Medications/Allergies Allergies/Adverse Reactions: Allergies Allergy/AdvReac Type Severity Reaction Status Date / Time No Known Allergies Allergy Verified 10/10/17 16:58 Medications: Current Medications Acetaminophen (Tylenol) 650 mg PO Q4H PRN PRN Reason: Headache/Fever or Pain Last Admin: 10/11/17 06:00 Dose: 650 mg Acetaminophen (Tylenol) 1,000 mg PO Q6H PRN PRN Reason: Moderate to Severe Pain (6-10) Al Hydroxide/Mg Hydroxide (Maalox) 30 ml PO Q6H PRN PRN Reason: Heartburn or Indigestion Ampicillin (Polycillin) 250 mg PO QID [facility] Last Admin: 10/20/17 17:08 Dose: 250 mg Benzonatate (Tessalon) 100 mg PO Q4H PRN PRN Reason: Cough Bisacodyl (Dulcolax) 10 mg PO DAILYPRN PRN PRN Reason: Constipation Calcium Carbonate (Tums) 1,000 mg PO Q4H PRN PRN Reason: Heartburn or Indigestion Clonidine (Catapres) 0.1 mg PO Q4H PRN PRN Reason: Systolic BP > 170 Dextrose/Water (Dextrose 50%) 25 gm SLOW IVP PRN PRN PRN Reason: Hypoglycemia Enoxaparin Sodium (Lovenox) 40 mg SC 0900 [facility] Last Admin: 10/20/17 09:21 Dose: Not Given Famotidine (Pepcid) 20 mg PO 2100 [facility] Last Admin: 10/19/17 20:58 Dose: 20 mg Glucagon (Glucagon) 1 mg IM PRN PRN PRN Reason: Hypoglycemia Guaifenesin (Robitussin Sf) 200 mg PO Q4H PRN PRN Reason: Cough Hydralazine HCl (Apresoline) 10 mg SLOW IVP Q4H PRN PRN Reason: Systolic BP > 180 Dextrose/Water (D5w) 1,000 mls @ 0 mls/hr IV .Q0M PRN; As Directed PRN Reason: Hypoglycemia Sodium Chloride (Normal Saline 0.9%) 1,000 mls @ 75 mls/hr IV .[id number] [facility] Last Admin: 10/20/17 15:37 Dose: Not Given Insulin Detemir 10 units/ (Miscellaneous Medication) 0.1 mls @ 0 mls/hr SC QAM [facility] Last Admin: 10/20/17 09:20 Dose: 0.1 mls Insulin Human Lispro (Humalog) 0 units SC .MODERATE SLIDING SC PRN PRN Reason: Moderate Correctional Scale Last Admin: 10/18/17 17:01 Dose: 2 unit Insulin Human Lispro (Humalog) 0 units SC .BEDTIME SLIDING SC PRN PRN Reason: Bedtime Correctional Scale Last Admin: 10/14/17 21:25 Dose: 3 unit Loratadine (Claritin) 10 mg PO DAILYPRN PRN PRN Reason: Sinus Symptoms Metformin HCl (Glucophage) 500 mg PO BID-[facility] Last Admin: 10/20/17 17:08 Dose: 500 mg Nitroglycerin (Nitrostat) 0.4 mg SL Q5MIN PRN PRN Reason: Chest Pain Ondansetron HCl (Zofran) 4 mg IVP Q6H PRN PRN Reason: Nausea/Vomiting Last Admin: 10/15/17 17:51 Dose: 4 mg Polyethylene Glycol (Miralax) 17 gm PO DAILY [facility] Last Admin: 10/20/17 09:22 Dose: 17 gm Senna (Senokot) 2 tab PO HSPRN PRN PRN Reason: Constipation Sodium Chloride (Flush - Normal Saline) 10 ml IVF Q12HR [facility] Last Admin: 10/20/17 09:21 Dose: Not Given Sodium Chloride (Flush - Normal Saline) 10 ml IVF PRN PRN PRN Reason: Saline Flush Tramadol HCl (Ultram) 100 mg PO Q4H PRN PRN Reason: Severe Pain (7-10) Last Admin: 10/20/17 09:17 Dose: 100 mg
[2017-10-20] MEDS: Famotidine 20 MG TAB PO SCH (20:46)
--- NOTE | 2017-10-21 01:24 | DIS ---
DATE OF ADMISSION: 10/10/2017 DATE OF DISCHARGE: 10/20/2017 PRIMARY CARE PROVIDER: [facility] DISCHARGE DIAGNOSES: 1. 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 2. Status post amputation of left great toe, second toe and metatarsals during this hospitalization. 3. Newly diagnosed diabetes mellitus. CONDITION OF PATIENT ON THE DAY OF DISCHARGE: Stable. I assessed Mr. Nava on the day of discharg e. He denies any chest pain or shortness of breath. Vital signs are stable. S1 and S2 are heard, r egular. Lungs are clear to auscultation bilaterally. He has a wound VAC over the left foot. DISCHARGE MEDICATIONS: Novolin 70/30 of 10 units daily, metformin 500 mg 2 times a day. HOSPITAL COURSE: Mr. Nava is a pleasant 47-year-old gentleman who was admitted for diabetic gas g angrene infection of the left great toe and metatarsal on 10/10/2017. Foot x-ray done at the time of admission showed findings consistent with osteomyelitis of the distal phalanx of the great toe with air seen within the soft tissues to the level of the first metatarsal. He was seen by Surgical Servi ce, Dr. Lawson, and underwent amputation as described above. Bacterial cultures grew Streptococcus i ntermedius and Streptococcus agalactiae group B from the toe. Streptococcus intermedius was pansensi tive. He is being discharged home on ampicillin for 2 more weeks. Arrangements were also made for wound VAC. During this hospitalization, he was also found to have di abetes mellitus. Hemoglobin A1c was 13.1. He has been started on metformin and insulin. Arrangemen ts are being made for glucometer and glucometer strips. He is advised to follow up with primary care provider for further management. He is trying to set up care with [facility]. On 10/19/2017, he had normal creatinine, normal electrolytes, white count 5400, hemoglobin 12.1, and platelet count 425,000. He will be seen in outpatient wound care by General Surgery in 2 weeks. DISCHARGE DESTINATION: Home. TOTAL AMOUNT OF TIME SPENT COORDINATING THIS DISCHARGE: 33 minutes.
[2017-10-21] MEDS: metFORMIN 500 MG TAB PO SCH (08:50)
[2017-10-21] MEDS: Polyethylene Glycol 3350 17 GM Packet PO SCH ×2 (08:51→08:57)
[2017-10-21] MEDS: Enoxaparin Sodium 40 MG/0.4 ML SYRINGE SC SCH (08:51)
[2017-10-21] MEDS: Insulin Detemir 100 UNITS/ML 10 UNITS in Pre-Filled Syringe 1 EACH SC SCH (09:48)
[2017-10-21] MEDS: HumaLOG 300 UNITS/3 ML VIAL SC PRN (12:27)
[2017-10-21 13:26] VITALS: BP 119/77; TEMP 98.2
--- NOTE | 2017-10-21 16:03 | PRG ---
DATE OF SERVICE: 10/21/2017 Mr. Nava is doing well today. He is afebrile. Culture reveal Streptococcus anaerobic positive an d negative yana from his foot culture. Blood cultures are negative. The patient continues on oral an tibiotics. Wound VAC is on his foot. The patient can be discharged on oral antibiotics whenever he is stable from a medical standpoint. I will see him as an outpatient.
--- NOTE | 2017-10-21 21:55 | DIS ---
DATE OF ADMISSION: 10/10/2017 DATE OF DISCHARGE: 10/21/2017 PRIMARY CARE PROVIDER: None. DISCHARGE DIAGNOSES: 1. 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 2. Status post amputation of the left great toe, second toe and metatarsals during this hospitalizat ion. 3. Newly diagnosed diabetes mellitus. CONDITION OF PATIENT ON THE DAY OF DISCHARGE: Stable. I assessed Mr. Nava on 10/21/2017. He den ies any chest pain or shortness of breath. PHYSICAL EXAMINATION: VITAL SIGNS: Stable. HEART: S1 and S2 are heard, regular. LUNGS: Clear to auscultation. DISCHARGE MEDICATIONS: Novolin 70/30, 10 units daily; metformin 500 mg 2 times a day. HOSPITAL COURSE: Please note that Mr. Nava had a discharge summary dictated on 10/20/2017. Isak foster refer to that note for further details of his hospitalization. He was not discharged on 10/20/2017 because he did not have a right home. He is being discharged home on 10/21/2017. DISCHARGE DESTINATION: Home. TOTAL AMOUNT OF TIME SPENT COORDINATING THIS DISCHARGE: 31 minutes.
== END 2017-10-21 18:39 | disposition home or self-care (01) | DRG 256 ==
LOC: ERS 12:15 → T4-A 14:30
PROVIDERS: ADMIT Internal Medicine; ATTEND Internal Medicine
PROC: 0Y6Q0Z0 Detachment at Left 1st Toe, Complete, Open Approach (ICD-10-PCS; principal; 2017-10-12)
PROC: 0Y6S0Z0 Detachment at Left 2nd Toe, Complete, Open Approach (ICD-10-PCS; 2017-10-12)
PROC: 0HDNXZZ Extraction of Left Foot Skin, External Approach (ICD-10-PCS; 2017-10-19)
DX: E11.52 Type 2 diabetes mellitus with diabetic peripheral angiopathy with gangrene (principal); E11.69 Type 2 diabetes mellitus with other specified complication; R65.10 Systemic inflammatory response syndrome (SIRS) of non-infectious origin without acute organ dysfunction; M86.172 Other acute osteomyelitis, left ankle and foot; E11.65 Type 2 diabetes mellitus with hyperglycemia; E87.1 Hypo-osmolality and hyponatremia; M86.8X6 Other osteomyelitis, lower leg; I10 Essential (primary) hypertension; B95.4 Other streptococcus as the cause of diseases classified elsewhere; B95.1 Streptococcus, group B, as the cause of diseases classified elsewhere
CPT/HCPCS: 36415; 36416; 80048; 80053; 80061; 80202; 81001; 83036; 85014; 85018; 85025; 87040; 87070; 87077; 87186; 87205; 88305; 90471; 90682; 90732; 96365; 96375; A4216; G0008; G0009; G8978-GP-CJ; G8979-GP-CJ; G8980-GP-CJ; J1650; J1815; J1956; J2001; J2250; J2405; J2543; J2704; J3010; J3370; J7050; Q2036

== ENCOUNTER 2017-10-29 10:31 | Outpatient (CLI) | payer SELFPAY ==
[2017-10-29] MEDS ORDERED: Lidocaine 4% Topical Sol 50 ML BOT ONE (21:24)
[2017-10-29] MEDS ORDERED: Sodium Chloride 0.9% 15 ML NEB ONE (21:24)
== END 2017-10-29 10:32 | disposition home or self-care (01) ==
LOC: WCC 10:31
PROVIDERS: ATTEND Family Medicine
DX: T87.89 Other complications of amputation stump (principal); Z89.412 Acquired absence of left great toe
CPT/HCPCS: 36416; 97605; A4218; J2001

== ENCOUNTER 2017-11-03 08:05 | Outpatient (CLI) | payer SELFPAY ==
[2017-11-03] MEDS ORDERED: Lidocaine 4% Topical Sol 50 ML BOT ONE (14:36)
[2017-11-03] MEDS ORDERED: Sodium Chloride 0.9% 15 ML NEB ONE (14:36)
== END 2017-11-03 08:06 | disposition home or self-care (01) ==
LOC: WCC 08:05
PROVIDERS: ATTEND Family Medicine
DX: T81.89XD Other complications of procedures, not elsewhere classified, subsequent encounter (principal); Z89.412 Acquired absence of left great toe; Z89.422 Acquired absence of other left toe(s)
CPT/HCPCS: 36416; 97605; A4218; J2001

== ENCOUNTER 2017-11-05 08:17 | Outpatient (CLI) | payer SELFPAY ==
[2017-11-05] MEDS ORDERED: Sodium Chloride 0.9% 15 ML NEB ONE (13:37)
== END 2017-11-05 08:18 | disposition home or self-care (01) ==
LOC: WCC 08:17
PROVIDERS: ATTEND Family Medicine
DX: T87.89 Other complications of amputation stump (principal); Z89.412 Acquired absence of left great toe
CPT/HCPCS: 36416; 97605; A4218

== ENCOUNTER 2017-11-10 08:13 | Outpatient (CLI) | payer SELFPAY | END 2017-11-10 08:14 | disposition home or self-care (01) | LOC: WCC 08:13 | PROVIDERS: ATTEND Family Medicine | DX: T87.89 Other complications of amputation stump (principal); Z89.412 Acquired absence of left great toe | CPT/HCPCS: 36416; 97605 ==

== ENCOUNTER 2017-11-12 13:56 | Outpatient (CLI) | payer SELFPAY ==
[~2017-11-12 13:56] MED LIST: Sodium Chloride 0.9% 15 ML NEB ONE
== END 2017-11-12 13:57 | disposition home or self-care (01) ==
LOC: WCC 13:56
PROVIDERS: ATTEND Family Medicine
DX: T87.89 Other complications of amputation stump (principal); Z89.412 Acquired absence of left great toe
CPT/HCPCS: 36416; 97605; A4218

== ENCOUNTER 2017-11-16 10:10 | Outpatient (CLI) | payer SELFPAY ==
--- NOTE | 2017-11-16 11:31 | HP ---
DATE OF SERVICE: 11/16/2017 HISTORY OF PRESENT ILLNESS: Mr. Deborah Nava is a very pleasant 47-year-old gentleman, Estonian speaking only, who presents to the [facility] for evaluation of a wound of the left foot. Apparen tly, the patient dropped concrete on his foot around 09/23/2017. On 10/12/2017, the patient required amputation of the left great toe, second toe and metatarsals. Also at the time of surgery, the zohreh ent underwent wound VAC placement. Cultures of the wound revealed the growth of Streptococcus angino zahira group and Streptococcus agalactiae group B in addition to multiple anaerobes. The patient was di scharged to home on ampicillin for 2 weeks. Also at the time of discharge, the patient was referred to the Wound Center for assistance with dressing changes of the wound VAC. PAST MEDICAL HISTORY: Diabetes mellitus, newly diagnosed. PAST SURGICAL HISTORY: Amputation of left great toe, second toe and metatarsals/wound VAC placement on 10/12/2017. MEDICATIONS: 1. Metformin. 2. Insulin 70/30. ALLERGIES: No known diagnosed allergies. SOCIAL HISTORY: Negative for tobacco or ETOH use. FAMILY HISTORY: Significant for diabetes mellitus. The patient's father was diagnosed with diabetes mellitus. PHYSICAL EXAMINATION: VITAL SIGNS: Temperature 97.4, pulse 90, respirations 16, blood pressure 108/69, Accu-Chek 134. GENERAL: A 47-year-old gentleman sitting on chair in examination room in no acute distress. HEENT: Normocephalic, atraumatic. NECK: No nuchal rigidity. CHEST: Clear to auscultation. CARDIAC: Regular rate and rhythm. ABDOMEN: Soft. EXTREMITIES: A wound of the left foot is present which measures approximately 5.5 x 3.0 cm. The wou nd is granulating. Nonviable tissue present within the wound margins was debrided with an excisional full-thickness debridement. No purulent drainage is associated with the wound. No cellulitis of th e left foot is appreciated. No maceration of the skin of the periwound is noted. A dorsalis pedis p ulse is palpable on the left. No significant edema of the left foot is present on exam today. NEUROLOGIC: Grossly nonfocal. ASSESSMENT AND PLAN: 1. Left foot wound as described above. Negative pressure therapy will be continued with dressing ch anges of the wound VAC 2 times per week here in the Wound Center. The patient will be seen by Dr. Beckwith in 1 week. I will see Elijah again in two weeks. 2. Diabetes mellitus. The patient's Accu-Chek in clinic today is 134. The patient has been told th at for optimal wound healing, his blood glucoses should remain below 150.
== END 2017-11-16 10:11 | disposition home or self-care (01) ==
LOC: WCC 10:10
PROVIDERS: ATTEND Family Medicine
DX: T81.89XD Other complications of procedures, not elsewhere classified, subsequent encounter (principal); E11.9 Type 2 diabetes mellitus without complications
CPT/HCPCS: 11042; 99204; A4218; G0463

== ENCOUNTER 2017-11-23 13:58 | Outpatient (CLI) | payer SELFPAY | END 2017-11-23 13:59 | disposition home or self-care (01) | LOC: WCC 13:58 | PROVIDERS: ATTEND Family Medicine | DX: T81.89XD Other complications of procedures, not elsewhere classified, subsequent encounter (principal); Z89.412 Acquired absence of left great toe; Z89.422 Acquired absence of other left toe(s) | CPT/HCPCS: 97605; A4218 ==

== ENCOUNTER 2017-11-26 10:48 | Outpatient (CLI) | payer SELFPAY ==
[2017-11-26] MEDS ORDERED: Sodium Chloride 0.9% 15 ML NEB ONE (17:07)
[2017-11-26] MEDS ORDERED: Lidocaine 2% Jelly 5 ML TUBE ONE (17:07)
== END 2017-11-26 10:49 | disposition home or self-care (01) ==
LOC: WCC 10:48
PROVIDERS: ATTEND Family Medicine
DX: T87.89 Other complications of amputation stump (principal); Z89.412 Acquired absence of left great toe
CPT/HCPCS: 97605; A4218

== ENCOUNTER 2017-11-30 13:02 | Outpatient (CLI) | payer SELFPAY ==
--- NOTE | 2017-11-30 15:08 | PRG ---
DATE OF SERVICE: 11/30/2017 SUBJECTIVE: Mr. Deborah Nava is a very pleasant 47-year-old gentleman, Mauritian speaking only, who presents to the [facility] Center for evaluation of a wound of the left foot. Apparently, the patient dropped a concrete on his foot around 09/23/2017. On 10/12/2017, the patient required amputation of the left great toe, second toe, and metatarsals. Also at the time of surgery, the patient underwent wound VAC placement. Cultures of the wound revealed the growth of Streptococcus anginosus group and Streptococcus agalactiae group B in addition to multiple anaerobes. The patient was discharged to [facility] on ampicillin for 2 weeks. Also at the time of discharge, the patient was referred to the Wound Center for assistance with dressing changes of the wound VAC. OBJECTIVE: VITAL SIGNS: Temperature 97.3, pulse 92, respirations 17, blood pressure 108/64. Accu-Chek 160. EXTREMITIES: A wound of the left foot is present, which measures approximately 5.9 x 2.2 cm. The wo und is granulating. Nonviable tissue present within the wound margins was debrided with an excisiona l full-thickness debridement with the use of scissors. No purulent drainage is associated with the w ound. No cellulitis of the left foot is present. No maceration of the skin of the periwound is note d. A dorsalis pedis pulse is easily palpable on the left. No significant edema of the left foot is present on exam today. ASSESSMENT AND PLAN: 1. Left foot wound as described above. Negative pressure therapy will be continued with dressing ch anges of the wound VAC 2 times per week here in the Wound Center. The patient will be seen by Dr. Beckwith in 1 week. I will see Mr. Nava again in two weeks. 2. Diabetes mellitus. The patient's Accu-Chek in clinic today is 160. The patient has been reminde d that for optimal wound healing, his blood glucoses should remain below 150.
[2017-11-30] MEDS ORDERED: Sodium Chloride 0.9% 15 ML NEB ONE (17:25)
[2017-11-30] MEDS ORDERED: Lidocaine 2% Jelly 5 ML TUBE ONE (17:25)
== END 2017-11-30 13:03 | disposition home or self-care (01) ==
LOC: WCC 13:02
PROVIDERS: ATTEND Family Medicine
DX: S98.112A Complete traumatic amputation of left great toe, initial encounter (principal); S98.132A Complete traumatic amputation of one left lesser toe, initial encounter
CPT/HCPCS: 11042; A4218

== ENCOUNTER 2017-12-03 09:50 | Outpatient (CLI) | payer SELFPAY ==
[2017-12-04] MEDS ORDERED: Sodium Chloride 0.9% 15 ML NEB ONE (16:02)
== END 2017-12-03 09:51 | disposition home or self-care (01) ==
LOC: WCC 09:50
PROVIDERS: ATTEND Family Medicine
DX: T81.89XD Other complications of procedures, not elsewhere classified, subsequent encounter (principal); Z89.412 Acquired absence of left great toe; Z89.422 Acquired absence of other left toe(s)
CPT/HCPCS: 97605

== ENCOUNTER 2017-12-07 13:12 | Outpatient (CLI) | payer SELFPAY ==
[2017-12-07] MEDS ORDERED: Sodium Chloride 0.9% 15 ML NEB ONE (16:54)
== END 2017-12-07 13:13 | disposition home or self-care (01) ==
LOC: WCC 13:12
PROVIDERS: ATTEND Family Medicine
DX: T81.89XD Other complications of procedures, not elsewhere classified, subsequent encounter (principal); Z89.412 Acquired absence of left great toe; Z89.422 Acquired absence of other left toe(s)
CPT/HCPCS: 97605; A4218

== ENCOUNTER 2017-12-10 14:31 | Outpatient (CLI) | payer SELFPAY | END 2017-12-10 14:32 | disposition home or self-care (01) | LOC: WCC 14:31 | PROVIDERS: ATTEND Family Medicine | DX: T81.89XD Other complications of procedures, not elsewhere classified, subsequent encounter (principal); Z89.412 Acquired absence of left great toe; Z89.422 Acquired absence of other left toe(s) | CPT/HCPCS: 97605 ==

== ENCOUNTER 2017-12-14 12:56 | Outpatient (CLI) | payer SELFPAY ==
--- NOTE | 2017-12-14 14:53 | PRG ---
DATE OF SERVICE: 12/14/2017 HISTORY: Mr. Deborah Nava is a very pleasant 47-year-old gentleman, [place] speaking only, who presents to the [facility] Center for evaluation of a wound of the left foot. Apparently the patient marina pped concrete on his foot around 09/23/2017. O 10/12/2017 the patient required amputation of the lef t great toe, second toe and metatarsals. Also at the time of surgery, the patient underwent wound VA C placement. Cultures of the wound revealed the growth of Streptococcus anginosus group and Streptoc occus agalactiae group B, in addition to multiple anaerobes. The patient was discharged to home on a mpicillin for 2 weeks. Also at the time of discharge, the patient was referred to the Wound Center f or assistance with dressing changes of the wound VAC. PHYSICAL EXAMINATION: VITAL SIGNS: Temperature 97.5, pulse 100, respirations 17, blood pressure 100/66, Accu-Chek 142. EXTREMITIES: A wound of the left foot is present which measures approximately 3.1 x 1.1 cm. The wou nd is granulating. Nonviable tissue present within the wound margins was debrided with an excisional full-thickness debridement with the use of scissors. No purulent drainage is associated with the wo und. No cellulitis of the left foot is present. No maceration of the skin of the periwound is noted . A dorsalis pedis pulse is easily palpable on the left. No significant edema of the left foot is p resent on exam today. ASSESSMENT AND PLAN: 1. Left foot wound as described above. Negative pressure therapy will be continued with dressing ch anges of the wound VAC 2 times per week here in the Wound Center. I will see Mr. Nava again in 2 weeks. 2. Diabetes mellitus. The patient's Accu-Chek in clinic today is 142. The patient has been reminde d that for optimal wound healing, his blood glucoses should remain below 150.
== END 2017-12-14 12:57 | disposition home or self-care (01) ==
LOC: WCC 12:56
PROVIDERS: ATTEND Family Medicine
DX: S91.302D Unspecified open wound, left foot, subsequent encounter (principal); E11.9 Type 2 diabetes mellitus without complications; E11.69 Type 2 diabetes mellitus with other specified complication
CPT/HCPCS: 11042

== ENCOUNTER 2017-12-17 14:48 | Outpatient (CLI) | payer SELFPAY | END 2017-12-17 14:49 | disposition home or self-care (01) | LOC: WCC 14:48 | PROVIDERS: ATTEND Family Medicine | DX: T81.89XD Other complications of procedures, not elsewhere classified, subsequent encounter (principal); Z89.412 Acquired absence of left great toe; Z89.422 Acquired absence of other left toe(s) | CPT/HCPCS: 97605 ==

== ENCOUNTER 2017-12-21 14:29 | Outpatient (CLI) | payer SELFPAY ==
[~2017-12-21 14:29] MED LIST changes: +Sodium Chloride 0.9% (5 ML) NEB ONE; -Sodium Chloride 0.9% 15 ML NEB ONE
== END 2017-12-21 14:30 | disposition home or self-care (01) ==
LOC: WCC 14:29
PROVIDERS: ATTEND Family Medicine
DX: T87.89 Other complications of amputation stump (principal); Z89.412 Acquired absence of left great toe
CPT/HCPCS: 97602; A4218

== ENCOUNTER 2018-01-04 10:06 | Outpatient (CLI) | payer SELFPAY ==
[2018-01-04] MEDS ORDERED: Sodium Chloride 0.9% 15 ML NEB ONE (14:24)
--- NOTE | 2018-01-04 16:06 | PRG ---
DATE OF SERVICE: 01/04/2018 HISTORY: Mr. Deborah Nava is a very pleasant 47-year-old gentleman, Hungarian-speaking only, who presents to the [facility] Center for evaluation of a wound of the left foot. Apparently the patient dropped concrete on his foot around 09/23/2017. On 10/12/2017 the patient required amputation of the left great toe, second toe, and metatarsals. Also at the time of surgery, the patient underwent wound VAC placement. Cultures of the wound revealed the growth of Streptococcus anginosus group and Streptococcus agalactiae group B, in addition to multiple anaerobes. The patient was discharged to home on ampicillin for 2 weeks. Also at the time of discharge, the patient was referred to the Wound Center for assistance with dressing changes of the wound VAC. PHYSICAL EXAMINATION: VITAL SIGNS: Temperature 97.6, pulse 94, respirations 18, blood pressure 110/ 73. Accu-Chek 146. EXTREMITIES: The wound of the left foot has healed completely. ASSESSMENT AND PLAN: 1. Left foot wound subsequent to amputation of the left great toe, second toe, and metatarsals. As stated above, the wound has healed completely. The patient has been asked to keep his newly healed wound clean, dry, and covered. The patient has also been instructed to examine both feet on a daily basis. Mr. Nava will be discharged from clinic today with follow up on a p.r.n. basis. 2. Diabetes mellitus. The patient's Accu-Chek in clinic today is 146. MTDD
== END 2018-01-04 10:07 | disposition home or self-care (01) ==
LOC: WCC 10:06
PROVIDERS: ATTEND Family Medicine
DX: T81.89XD Other complications of procedures, not elsewhere classified, subsequent encounter (principal); E11.9 Type 2 diabetes mellitus without complications; Z89.412 Acquired absence of left great toe; Z89.422 Acquired absence of other left toe(s)
CPT/HCPCS: 97602; A4218

== ENCOUNTER 2022-05-23 11:55 | Inpatient (IN) | payer SELFPAY ==
[2022-05-23 13:03] LABS: #Eosinphils 0.1 thou/uL (0.0-0.7); #Lymphocytes 1.3 thou/uL (1.20-3.40); #Monocytes 0.6 thou/uL (0.11-0.59); #Neutrophils 5.7 thou/uL (1.40-6.50); %Basophils 0.6 % (0.0-1.0); %Eosinophils 0.7 % (0.0-10.0); %Lymphocytes 16.7 % (21.0-51.0); %Monocytes 8.3 % (0.0-10.0); %Neutrophils 73.7 % (42.0-75.0); Hemoglobin 13.2 g/dL (14.0-18.0); Mean Corpuscular HGB CONC 33.7 g/dL (32.0-36.0); Mean Corpuscular Hemoglobin 30.1 pg (27.0-31.0); Mean Corpuscular Volume 89.2 fL (78.0-98.0); Mean Platelet Volume 8.7 fL (7.4-10.4); Platelet Count 296 thou/uL (130-400); RBC Distribution Width 11.2 % (11.5-14.5); Red Blood Cell (RBC) Count 4.39 mill/uL (4.70-6.10); White Blood Cell (WBC) Count 7.7 thou/uL (4.8-10.8)
[2022-05-23 13:26] LABS: ALT (SGPT) 19 U/L (8-55); AST (SGOT) 17 U/L (5-34); Alkaline Phosphatase 154 U/L (40-110); Anion Gap 21 mmol/L (10-20); BUN (Urea Nitrogen) 68 mg/dL (8.4-25.7); Bilirubin, Total 0.8 mg/dL (0.2-1.2); Calc. Creatinine Clearance 0 mL/min (70-130); Calcium 9.4 mg/dL (7.8-10.44); Carbon Dioxide 22 mmol/L (22-29); Chloride 87 mmol/L (98-107); Estimated GFR 19; Globulin 4.3 g/dL (2.4-3.5); Glucose 411 mg/dL (70-105); Potassium 4.6 mmol/L (3.5-5.1); Protein, Total 8.3 g/dL (6.0-8.3); Sodium 125 mmol/L (136-145)
[2022-05-23] MEDS ORDERED: Cefepime 2 GM VIAL ONE (14:56)
[2022-05-23] MEDS ORDERED: Vancomycin 1 GM/200 ML BAG ONE (15:46)
[2022-05-23] MEDS ORDERED: Dextrose 5% in Water 1,000 ML IV PRN (16:17)
[2022-05-23] MEDS ORDERED: Dextrose 50% Abboject 50 ML SYRINGE SLOW IVP PRN (16:17)
[2022-05-23] MEDS ORDERED: HumaLOG 300 UNITS/3 ML VIAL SC PRN (16:22)
[2022-05-23] MEDS ORDERED: Lactated Ringer's 1,000 ML IV SCH (16:30)
[2022-05-23] MEDS ORDERED: Acetaminophen 325 MG TAB PO PRN (16:45)
[2022-05-23] MEDS ORDERED: Ondansetron PF 4 MG/2 ML Vial IVP PRN (16:45)
[2022-05-23] MEDS ORDERED: Ondansetron ODT 4 MG TAB SL PRN (16:45)
[2022-05-23] MEDS ORDERED: NPH, Human Insulin Isophane 300 UNIT/3 ML VIAL SC SCH ×2 (17:00→18:00)
[2022-05-23] MEDS: Sodium Chloride 0.9% 1,000 ML IV SCH ×2 (17:23→21:49)
[2022-05-23 17:32] VITALS: BMI 21.3
[2022-05-23 17:51] LABS: Cardiac Risk 5.6 (Less than 4.5)
[2022-05-23] MEDS ORDERED: Atorvastatin Calcium 10 MG TAB PO SCH (21:00)
[2022-05-23] MEDS: Heparin 5,000 UNITS/ML VIAL SC SCH (21:49)
[2022-05-23] MEDS: HumaLOG 300 UNITS/3 ML VIAL SC PRN (21:51)
[2022-05-24 06:35] LABS: #Eosinphils 0.1 thou/uL (0.0-0.7); #Lymphocytes 1.2 thou/uL (1.20-3.40); #Monocytes 0.6 thou/uL (0.11-0.59); #Neutrophils 5.1 thou/uL (1.40-6.50); %Basophils 0.4 % (0.0-1.0); %Eosinophils 0.8 % (0.0-10.0); %Lymphocytes 17.7 % (21.0-51.0); %Monocytes 8.9 % (0.0-10.0); %Neutrophils 72.2 % (42.0-75.0); Hemoglobin 12.5 g/dL (14.0-18.0); Mean Corpuscular HGB CONC 34.3 g/dL (32.0-36.0); Mean Corpuscular Volume 90.4 fL (78.0-98.0); Mean Platelet Volume 8.5 fL (7.4-10.4); Platelet Count 273 thou/uL (130-400); RBC Distribution Width 11.4 % (11.5-14.5); Red Blood Cell (RBC) Count 4.01 mill/uL (4.70-6.10); White Blood Cell (WBC) Count 7.1 thou/uL (4.8-10.8)
[2022-05-24 06:40] LABS: Bacteria/HPF None Seen HPF (None Seen); Bilirubin Negative (Negative); Blood, Urine Negative (Negative); Clarity Clear (Clear); Glucose, Urine (Dipstick) 300 mg/dL (Negative); Ketone, Urine Negative (Negative); Leukocyte Negative Leu/uL (Negative); Nitrite Negative (Negative); Protein, Urine (Dipstick) 10 mg/dL (Neg-Trace); RBC/HPF 0-3 HPF (0-3); Specific Gravity, Urine 1.011 (1.002-1.036); Squamous Epithelial None Seen HPF (0-3); Urobilinogen Normal mg/dL (Less than 2); WBC/HPF None Seen HPF (0-3)
[2022-05-24 06:49] LABS: Urine Culture Reflex No No
[2022-05-24 07:05] LABS: Creatinine, Urine 72.16 mg/dL (63-166); Sodium, Urine Less than 20 mmol/L (Not Available)
[2022-05-24 07:07] LABS: Creatinine, Urine 70.54 mg/dL (63-166); Microalbumin Urine 6.6 mg/dL (0.5-50.0); Microalbumin/Creat Ratio 93.6 mg/g (Less than 30)
[2022-05-24 07:12] LABS: ALT (SGPT) 17 U/L (8-55); AST (SGOT) 17 U/L (5-34); Albumin 3.5 g/dL (3.5-5.0); Alkaline Phosphatase 131 U/L (40-110); Anion Gap 16 mmol/L (10-20); BUN (Urea Nitrogen) 57 mg/dL (8.4-25.7); Bilirubin, Total 0.4 mg/dL (0.2-1.2); Calc. Creatinine Clearance 39 mL/min (70-130); Carbon Dioxide 23 mmol/L (22-29); Chloride 102 mmol/L (98-107); Estimated GFR 45; Globulin 3.8 g/dL (2.4-3.5); Glucose 98 mg/dL (70-105); Potassium 4.6 mmol/L (3.5-5.1); Protein, Total 7.3 g/dL (6.0-8.3); Sodium 136 mmol/L (136-145)
[2022-05-24] MEDS ORDERED: NPH, Human Insulin Isophane 300 UNIT/3 ML VIAL SC SCH (08:00)
[2022-05-24] MEDS: NPH, Human Insulin Isophane 300 UNIT/3 ML VIAL SC SCH ×2 (08:41→18:34)
[2022-05-24] MEDS: Heparin 5,000 UNITS/ML VIAL SC SCH ×2 (08:42→14:04)
[2022-05-24] MEDS: Lactated Ringer's 1,000 ML IV SCH ×2 (10:27→20:42)
[2022-05-24] MEDS: Cefepime 1 GM in Sodium Chloride 0.9% 100 ML IVPB SCH ×2 (11:34→23:12)
[2022-05-24] MEDS: HumaLOG 300 UNITS/3 ML VIAL SC PRN (14:03)
[2022-05-24 14:38] LABS: Vancomycin, Random 8.8 ug/mL (See Comment)
[2022-05-24] MEDS ORDERED: Cefepime 0.5 GM, Admixture Fee 1 EACH in Sodium Chloride 0.9% 100 ML IVPB SCH (15:00)
[2022-05-24] MEDS ORDERED: Vancomycin 1 GM in Premix Bag 1 BAG IVPB SCH (17:45)
[2022-05-24] MEDS: Vancomycin HCl 750 MG in Sodium Chloride 0.9% 250 ML 250 ML IVPB SCH (18:24)
[2022-05-24] MEDS: Atorvastatin Calcium 20 MG TAB PO SCH (20:45)
[2022-05-25] MEDS: Lactated Ringer's 1,000 ML IV SCH ×2 (05:59→21:17)
[2022-05-25 06:43] LABS: #Eosinphils 0.1 thou/uL (0.0-0.7); #Lymphocytes 1.4 thou/uL (1.20-3.40); #Monocytes 0.6 thou/uL (0.11-0.59); #Neutrophils 3.9 thou/uL (1.40-6.50); %Basophils 0.5 % (0.0-1.0); %Eosinophils 2.2 % (0.0-10.0); %Lymphocytes 23.3 % (21.0-51.0); %Monocytes 10.2 % (0.0-10.0); %Neutrophils 63.8 % (42.0-75.0); Hemoglobin 10.9 g/dL (14.0-18.0); Mean Corpuscular HGB CONC 33.9 g/dL (32.0-36.0); Mean Corpuscular Volume 91.6 fL (78.0-98.0); Mean Platelet Volume 8.3 fL (7.4-10.4); Platelet Count 251 thou/uL (130-400); RBC Distribution Width 11.6 % (11.5-14.5); Red Blood Cell (RBC) Count 3.52 mill/uL (4.70-6.10); White Blood Cell (WBC) Count 6.2 thou/uL (4.8-10.8)
[2022-05-25 07:08] LABS: ALT (SGPT) 14 U/L (8-55); AST (SGOT) 15 U/L (5-34); Alkaline Phosphatase 109 U/L (40-110); Anion Gap 12 mmol/L (10-20); BUN (Urea Nitrogen) 29 mg/dL (8.4-25.7); Bilirubin, Total 0.3 mg/dL (0.2-1.2); Calc. Creatinine Clearance 54 mL/min (70-130); Calcium 8.4 mg/dL (7.8-10.44); Carbon Dioxide 22 mmol/L (22-29); Chloride 110 mmol/L (98-107); Estimated GFR 65; Globulin 3.1 g/dL (2.4-3.5); Glucose 138 mg/dL (70-105); Potassium 4.5 mmol/L (3.5-5.1); Protein, Total 6.1 g/dL (6.0-8.3); Sodium 139 mmol/L (136-145)
[2022-05-25] MEDS: NPH, Human Insulin Isophane 300 UNIT/3 ML VIAL SC SCH ×2 (09:41→17:05)
[2022-05-25] MEDS ORDERED: fentaNYL Citrate/PF 100 MCG/2 ML SYRINGE ONE (10:34)
[2022-05-25] MEDS ORDERED: Lidocaine 1% PF 5 ML VIAL ONE (10:36)
[2022-05-25] MEDS ORDERED: Phenylephrine 10 MG/ML VIAL ONE (10:36)
[2022-05-25] MEDS ORDERED: Glycopyrrolate 0.2 MG/ML 5 ML SYRINGE ONE (10:36)
[2022-05-25] MEDS ORDERED: Ondansetron PF 4 MG/2 ML Vial ONE (10:36)
[2022-05-25] MEDS ORDERED: PROPOFOL 200 MG/20 ML VIAL ONE (10:36)
[2022-05-25] MEDS ORDERED: Lidocaine 1% w/Epinephrine 1:100K 20 ML VIAL ONE (10:55)
[2022-05-25] MEDS ORDERED: Bupivacaine 0.25% HCL 30 ML VIAL ONE (10:55)
[2022-05-25] MEDS ORDERED: Promethazine HCl 25 MG/ML VIAL IM PRN (11:36)
[2022-05-25] MEDS ORDERED: Promethazine HCl 25 MG/ML VIAL IVPB PRN (11:36)
[2022-05-25] MEDS ORDERED: Ondansetron HCl/PF 4 MG/2 ML Vial IVP PRN (11:36)
[2022-05-25] MEDS: Cefepime 1 GM in Sodium Chloride 0.9% 100 ML IVPB SCH ×2 (11:53→21:17)
[2022-05-25 15:15] LABS: Vancomycin, Trough 7.9 ug/mL
[2022-05-25] MEDS: Vancomycin HCl 750 MG in Sodium Chloride 0.9% 250 ML 250 ML IVPB SCH (16:20)
[2022-05-25] MEDS: VANCOMYCIN 1.25 GM/250 ML BAG 1.25 GM in Premix Bag 1 BAG IVPB SCH (17:05)
[2022-05-25] MEDS: HumaLOG 300 UNITS/3 ML VIAL SC PRN (21:15)
[2022-05-25] MEDS: Atorvastatin Calcium 20 MG TAB PO SCH (21:16)
[2022-05-26 06:52] LABS: #Eosinphils 0.1 thou/uL (0.0-0.7); #Lymphocytes 1.4 thou/uL (1.20-3.40); #Monocytes 0.8 thou/uL (0.11-0.59); #Neutrophils 3.7 thou/uL (1.40-6.50); %Basophils 0.8 % (0.0-1.0); %Eosinophils 2.1 % (0.0-10.0); %Lymphocytes 23.5 % (21.0-51.0); %Monocytes 12.9 % (0.0-10.0); %Neutrophils 60.7 % (42.0-75.0); Mean Corpuscular HGB CONC 32.4 g/dL (32.0-36.0); Mean Corpuscular Hemoglobin 30.1 pg (27.0-31.0); Mean Platelet Volume 8.4 fL (7.4-10.4); Platelet Count 256 thou/uL (130-400); RBC Distribution Width 11.5 % (11.5-14.5); Red Blood Cell (RBC) Count 3.64 mill/uL (4.70-6.10)
[2022-05-26 07:04] LABS: ALT (SGPT) 14 U/L (8-55); AST (SGOT) 15 U/L (5-34); Albumin 2.9 g/dL (3.5-5.0); Alkaline Phosphatase 104 U/L (40-110); Anion Gap 10 mmol/L (10-20); BUN (Urea Nitrogen) 19 mg/dL (8.4-25.7); Bilirubin, Total 0.4 mg/dL (0.2-1.2); Calc. Creatinine Clearance 57 mL/min (70-130); Calcium 8.4 mg/dL (7.8-10.44); Carbon Dioxide 26 mmol/L (22-29); Chloride 108 mmol/L (98-107); Estimated GFR 70; Globulin 3.1 g/dL (2.4-3.5); Glucose 188 mg/dL (70-105); Potassium 4.3 mmol/L (3.5-5.1); Sodium 140 mmol/L (136-145)
[2022-05-26] MEDS: Lactated Ringer's 1,000 ML IV SCH ×2 (07:39→12:53)
[2022-05-26] MEDS: NPH, Human Insulin Isophane 300 UNIT/3 ML VIAL SC SCH ×2 (08:13→17:17)
[2022-05-26] MEDS: HumaLOG 300 UNITS/3 ML VIAL SC PRN (12:49)
[2022-05-26] MEDS: Cefepime 1 GM in Sodium Chloride 0.9% 100 ML IVPB SCH ×2 (12:52→22:37)
[2022-05-26] MEDS: VANCOMYCIN 1.25 GM/250 ML BAG 1.25 GM in Premix Bag 1 BAG IVPB SCH (17:16)
[2022-05-26] MEDS: Atorvastatin Calcium 20 MG TAB PO SCH (20:12)
[2022-05-26] MEDS: Enoxaparin Sodium 40 MG/0.4 ML SYRINGE SC SCH (20:12)
[2022-05-27 06:03] LABS: #Basophils 0.1 thou/uL (0.0-0.2); #Eosinphils 0.2 thou/uL (0.0-0.7); #Lymphocytes 1.9 thou/uL (1.20-3.40); #Monocytes 0.6 thou/uL (0.11-0.59); #Neutrophils 3.7 thou/uL (1.40-6.50); %Basophils 0.8 % (0.0-1.0); %Eosinophils 2.6 % (0.0-10.0); %Lymphocytes 29.7 % (21.0-51.0); %Monocytes 9.2 % (0.0-10.0); %Neutrophils 57.7 % (42.0-75.0); Hemoglobin 11.6 g/dL (14.0-18.0); Mean Corpuscular HGB CONC 34.4 g/dL (32.0-36.0); Mean Corpuscular Volume 90.2 fL (78.0-98.0); Mean Platelet Volume 7.7 fL (7.4-10.4); Platelet Count 263 thou/uL (130-400); RBC Distribution Width 11.2 % (11.5-14.5); Red Blood Cell (RBC) Count 3.73 mill/uL (4.70-6.10); White Blood Cell (WBC) Count 6.4 thou/uL (4.8-10.8)
[2022-05-27 06:22] LABS: ALT (SGPT) 22 U/L (8-55); AST (SGOT) 32 U/L (5-34); Albumin 3.1 g/dL (3.5-5.0); Alkaline Phosphatase 119 U/L (40-110); Anion Gap 12 mmol/L (10-20); BUN (Urea Nitrogen) 16 mg/dL (8.4-25.7); Bilirubin, Total 0.3 mg/dL (0.2-1.2); Calc. Creatinine Clearance 63 mL/min (70-130); Calcium 8.7 mg/dL (7.8-10.44); Carbon Dioxide 25 mmol/L (22-29); Chloride 106 mmol/L (98-107); Estimated GFR 79; Globulin 3.5 g/dL (2.4-3.5); Glucose 147 mg/dL (70-105); Potassium 4.2 mmol/L (3.5-5.1); Protein, Total 6.6 g/dL (6.0-8.3); Sodium 139 mmol/L (136-145)
[2022-05-27] MEDS: NPH, Human Insulin Isophane 300 UNIT/3 ML VIAL SC SCH ×2 (08:03→17:42)
[2022-05-27] MEDS: Cefepime 1 GM in Sodium Chloride 0.9% 100 ML IVPB SCH (10:58)
[2022-05-27] MEDS: Morphine 2 MG/ML VIAL SLOW IVP PRN (12:01)
[2022-05-27 17:33] LABS: Vancomycin, Trough 8.7 ug/mL
[2022-05-27] MEDS: VANCOMYCIN 1.25 GM/250 ML BAG 1.25 GM in Premix Bag 1 BAG IVPB SCH (17:42)
[2022-05-27] MEDS: HumaLOG 300 UNITS/3 ML VIAL SC PRN (17:42)
[2022-05-27] MEDS: Enoxaparin Sodium 40 MG/0.4 ML SYRINGE SC SCH (19:37)
[2022-05-27] MEDS: Atorvastatin Calcium 20 MG TAB PO SCH (19:37)
[2022-05-27] MEDS: Cefepime 2 GM in Sodium Chloride 0.9% 100 ML IVPB SCH (22:55)
[2022-05-28 06:51] LABS: #Basophils 0.1 thou/uL (0.0-0.2); #Eosinphils 0.2 thou/uL (0.0-0.7); #Lymphocytes 1.4 thou/uL (1.20-3.40); #Monocytes 0.5 thou/uL (0.11-0.59); #Neutrophils 4.1 thou/uL (1.40-6.50); %Basophils 1.2 % (0.0-1.0); %Eosinophils 2.7 % (0.0-10.0); %Lymphocytes 22.4 % (21.0-51.0); %Monocytes 8.7 % (0.0-10.0); %Neutrophils 65.1 % (42.0-75.0); Hemoglobin 11.7 g/dL (14.0-18.0); Mean Corpuscular HGB CONC 33.6 g/dL (32.0-36.0); Mean Corpuscular Hemoglobin 30.3 pg (27.0-31.0); Mean Corpuscular Volume 90.3 fL (78.0-98.0); Mean Platelet Volume 7.6 fL (7.4-10.4); Platelet Count 270 thou/uL (130-400); RBC Distribution Width 11.3 % (11.5-14.5); Red Blood Cell (RBC) Count 3.85 mill/uL (4.70-6.10); White Blood Cell (WBC) Count 6.3 thou/uL (4.8-10.8)
[2022-05-28 06:54] LABS: ALT (SGPT) 38 U/L (8-55); AST (SGOT) 49 U/L (5-34); Albumin 3.2 g/dL (3.5-5.0); Alkaline Phosphatase 121 U/L (40-110); Anion Gap 10 mmol/L (10-20); BUN (Urea Nitrogen) 16 mg/dL (8.4-25.7); Bilirubin, Total 0.3 mg/dL (0.2-1.2); Calc. Creatinine Clearance 63 mL/min (70-130); Calcium 8.9 mg/dL (7.8-10.44); Carbon Dioxide 27 mmol/L (22-29); Chloride 103 mmol/L (98-107); Estimated GFR 79; Globulin 3.6 g/dL (2.4-3.5); Glucose 138 mg/dL (70-105); Potassium 3.8 mmol/L (3.5-5.1); Protein, Total 6.8 g/dL (6.0-8.3); Sodium 136 mmol/L (136-145)
[2022-05-28] MEDS: NPH, Human Insulin Isophane 300 UNIT/3 ML VIAL SC SCH ×3 (09:14→16:51)
[2022-05-28] MEDS: Cefepime 2 GM in Sodium Chloride 0.9% 100 ML IVPB SCH ×2 (11:09→22:25)
[2022-05-28] MEDS: HumaLOG 300 UNITS/3 ML VIAL SC PRN ×2 (12:01→17:09)
[2022-05-28] MEDS ORDERED: Vancomycin 1.5 GRAM/300 ML BAG 1.5 GM in Premix Bag 1 BAG IVPB SCH (17:00)
[2022-05-28] MEDS: Enoxaparin Sodium 40 MG/0.4 ML SYRINGE SC SCH (20:08)
[2022-05-28] MEDS: Atorvastatin Calcium 20 MG TAB PO SCH (20:09)
[2022-05-29 06:37] LABS: ALT (SGPT) 44 U/L (8-55); AST (SGOT) 58 U/L (5-34); Alkaline Phosphatase 116 U/L (40-110); Anion Gap 10 mmol/L (10-20); BUN (Urea Nitrogen) 18 mg/dL (8.4-25.7); Bilirubin, Total 0.3 mg/dL (0.2-1.2); Calc. Creatinine Clearance 64 mL/min (70-130); Calcium 8.6 mg/dL (7.8-10.44); Carbon Dioxide 25 mmol/L (22-29); Chloride 105 mmol/L (98-107); Estimated GFR 81; Globulin 3.2 g/dL (2.4-3.5); Glucose 130 mg/dL (70-105); Protein, Total 6.2 g/dL (6.0-8.3); Sodium 136 mmol/L (136-145)
[2022-05-29 08:21] VITALS: BP 110/70; TEMP 97.9
[2022-05-29] MEDS: NPH, Human Insulin Isophane 300 UNIT/3 ML VIAL SC SCH ×2 (09:15→17:32)
[2022-05-29] MEDS: Morphine 2 MG/ML VIAL SLOW IVP PRN (09:16)
[2022-05-29] MEDS: Cefepime 2 GM in Sodium Chloride 0.9% 100 ML IVPB SCH (10:57)
[2022-05-29] MEDS ORDERED: Amoxicillin/Potassium Clav 875 MG TAB PO SCH (13:00)
[2022-05-29] MEDS ORDERED: Ciprofloxacin 500 MG TAB PO SCH (13:00)
== END 2022-05-29 18:33 | disposition home or self-care (01) | DRG 617 ==
LOC: ERS 11:55 → T4-A 15:16
PROVIDERS: ADMIT Student in an Organized Health Care Education/Training Program; ATTEND Student in an Organized Health Care Education/Training Program
PROC: 0Y6M0ZF Detachment at Right Foot, Partial 5th Ray, Open Approach (ICD-10-PCS; principal; 2022-05-25)
DX: E11.69 Type 2 diabetes mellitus with other specified complication (principal); M86.8X7 Other osteomyelitis, ankle and foot; E11.52 Type 2 diabetes mellitus with diabetic peripheral angiopathy with gangrene; L03.031 Cellulitis of right toe; N17.9 Acute kidney failure, unspecified; E11.65 Type 2 diabetes mellitus with hyperglycemia; Z20.822 Contact with and (suspected) exposure to COVID-19; E11.621 Type 2 diabetes mellitus with foot ulcer; L97.519 Non-pressure chronic ulcer of other part of right foot with unspecified severity; Z89.412 Acquired absence of left great toe; Z91.14 Patient's other noncompliance with medication regimen; Z89.422 Acquired absence of other left toe(s)
CPT/HCPCS: 36415; 36416; 80053; 80061; 80202; 81001; 82043; 82570; 83036; 84300; 85025; 85652; 86140; 87040; 88305; 88311; 96365; 96367; 97139; J0692; J1644; J1650; J1815; J2270; J2370; J2405; J2704; J3370; J3490; J7050; J7120; S0020; U0003; U0005